=== PATIENT | male | born 1940 | race Caucasian/White ===

== ENCOUNTER 2017-06-03 09:18 | Inpatient (IN) ==
[2017-06-03] MEDS ORDERED: VISTARIL INJ IM PRN (09:32)
[2017-06-03] MEDS ORDERED: ATROPINE SULFATE PFS IVP PRN (09:32)
[2017-06-03] MEDS ORDERED: NITROSTAT SL PRN (09:32)
[2017-06-03] MEDS ORDERED: TYLENOL PO PRN (09:32)
[2017-06-03 10:05] LABS: ABG BASE EXCESS -3 (-2.0-2.0); ABG PCO2 31.1 mmHg (35-45); ABG PH 7.438 (7.35-7.45); ABG TCO2 22 (22.0-28.0)
[2017-06-03 10:23] LABS: BASOPHILS # (AUTO) 0.1 K/uL (0-0.2); BASOPHILS % (AUTO) 1.3 % (0.0-3.0); EOSINOPHILS # (AUTO) 0.3 K/ul (0.0-0.7); EOSINOPHILS % (AUTO) 5.6 % (0.0-7.0); HEMOGLOBIN 15.2 g/dl (14.0-18.0); IMMATURE GRANULOCYTE % (AUTO) 0.5 % (0.0-5.0); LYMPHOCYTES # (AUTO) 1.5 K/uL (0.60-3.4); LYMPHOCYTES % (AUTO) 26.6 (10.0-50.0); MEAN CORPUSCULAR HEMOGLOBIN 33.9 pg (27.0-31.0); MEAN CORPUSCULAR HGB CONC 37.6 (31.8-35.4); MONOCYTES # (AUTO) 0.5 K/uL (0.4-2.0); NEUTROPHILS # (AUTO) 3.2 K/ul (2.0-6.9); PLATELET COUNT 156 10^3/uL (140-440); RED BLOOD COUNT 4.49 10^6/ul (4.70-6.10); WHITE BLOOD COUNT 5.57 K/ul (4.2-10.2)
[2017-06-03 10:29] VITALS: BMI 23.5
[2017-06-03] MEDS: LOVENOX SUBCUT SCH (10:35)
[2017-06-03] MEDS: ZITHROMAX PO SCH (10:35)
[2017-06-03] MEDS: SOLU-CORTEF 250 MG IVP SCH ×4 (10:36→23:52)
[2017-06-03] MEDS: TORADOL IVP SCH ×2 (10:37→22:01)
[2017-06-03] MEDS: DEXTROSE 5%-1/2NS IV SOLUTION 1,000 ML IV SCH ×2 (10:42→19:04)
[2017-06-03] MEDS: ROCEPHIN 1 GM in SODIUM CHLORIDE 50 ML IV SCH (10:43)
[2017-06-03 10:59] LABS: HEMATOCRIT 40.4 % (42.0-52.0)
[2017-06-03 11:04] LABS: ALBUMIN/GLOBULIN RATIO 1.21; ANION GAP 12.4; BILIRUBIN,TOTAL 0.77 mg/dL (0.00-1.20); BUN/CREATININE RATIO 13.41; CREATININE 0.82 mg/dL (0.60-1.10); POTASSIUM 3.4 mmol/L (3.5-5.1); TOTAL PROTEIN 7.3 g/dL (5.8-8.1)
[2017-06-03 11:07] LABS: CREATINE KINASE 37 U/L; MYOGLOBIN 28 ng/ml
--- NOTE | 2017-06-03 11:54 | DI ---
EXAM: CHEST FRONTAL VIEW HISTORY: Chest pain. COMPARISON: 12/25/2013 FINDINGS: Heart size upper limit normal, stable. There is at least mild atherosclerotic disease. S ternotomy wires are noted. No acute infiltrates are seen. No vascular congestion. There is no conso lidation, visible pleural fluid or pneumothorax. Bones reveal no acute fracture. IMPRESSION: No acute cardiopulmonary process.
--- NOTE | 2017-06-03 11:57 | NM ---
EXAM: Ventilation perfusion lung scan HISTORY: Chest pain. COMPARISON: None of this type. Chest x-ray 06/03/2017. PROCEDURE: Ventilation: The patient was allowed to inhale from a reservoir of 30.1 mCi of 99 technetium DTPA ae rosol. Subsequently anterior, posterior, lateral and anterior and posterior oblique images were obta ined. Perfusion: The patient was injected with 5.0 mCi of 99 technetium MAA intravenously after which ante rior, posterior, lateral and anterior and posterior oblique images were obtained. FINDINGS: Ventilation images demonstrate a modestly nonuniform distribution of activity with clumping of aerosol in the airways. Incidental swallowed activity is seen within the stomach. The accompanyi ng perfusion images demonstrate a more uniform distribution of activity without evidence of significa nt mismatched segmental or subsegmental perfusion defects suggestive of pulmonary embolus. IMPRESSION: 1. Low probability of pulmonary embolus. 2. Findings compatible with underlying lung disease.
[2017-06-03 11:59] LABS: BILIRUBIN,URINE Negative (NEGATIVE); KETONES,URINE Negative (NEGATIVE); LEUKOCYTE ESTERASE ,URINE Negative (NEGATIVE); NITRITE,URINE Negative (NEGATIVE); PH,URINE 7.5 (5-9); PROTEIN,URINE Negative (NEGATIVE); URINE, BLOOD 3+ (NEGATIVE)
[2017-06-03 12:00] LABS: ADD URINE MICROSCOPIC YES
[2017-06-03] MEDS: FLOMAX PO SCH (16:20)
[2017-06-03] MEDS: PROTONIX PO SCH (16:20)
[2017-06-03] MEDS: COZAAR PO SCH (16:20)
[2017-06-03] MEDS: TENORMIN PO SCH (16:20)
[2017-06-03] MEDS: HYDROCHLOROTHIAZIDE PO SCH (16:20)
[2017-06-03] MEDS ORDERED: ASPIRIN EC PO SCH (17:00)
[2017-06-03] MEDS ORDERED: ATENOLOL PO SCH (17:00)
[2017-06-03] MEDS ORDERED: CHLORTHALIDONE PO SCH (17:00)
[2017-06-03] MEDS ORDERED: LANSOPRAZOLE PO SCH (17:00)
[2017-06-03] MEDS ORDERED: NON-FORMULARY MEDICATION (Losartan Potassium 50 MG) PO SCH (17:00)
[2017-06-03] MEDS ORDERED: [UNRECOGNIZED DRUG - OTHER] PO SCH (17:00)
[2017-06-03 18:25] LABS: CREATINE KINASE 95 U/L; MYOGLOBIN 92 ng/ml
[2017-06-04] MEDS: DEXTROSE 5%-1/2NS IV SOLUTION 1,000 ML IV SCH (02:45)
[2017-06-04 05:31] LABS: BASOPHILS % (AUTO) 0.1 % (0.0-3.0); EOSINOPHILS % (AUTO) 0.1 % (0.0-7.0); HEMATOCRIT 35.4 % (42.0-52.0); HEMOGLOBIN 13.3 g/dl (14.0-18.0); IMMATURE GRANULOCYTE % (AUTO) 0.6 % (0.0-5.0); LYMPHOCYTES # (AUTO) 1.1 K/uL (0.60-3.4); LYMPHOCYTES % (AUTO) 13.4 (10.0-50.0); MEAN CORPUSCULAR HEMOGLOBIN 33.7 pg (27.0-31.0); MEAN CORPUSCULAR HGB CONC 37.6 (31.8-35.4); MEAN CORPUSCULAR VOLUME 89.6 fl (80.0-94.0); MONOCYTES # (AUTO) 0.3 K/uL (0.4-2.0); MONOCYTES % (AUTO) 3.1 (0-10); NEUTROPHILS % (AUTO) 82.7; PLATELET COUNT 139 10^3/uL (140-440); RED BLOOD COUNT 3.95 10^6/ul (4.70-6.10)
[2017-06-04] MEDS: SOLU-CORTEF 250 MG IVP SCH ×3 (05:49→17:44)
[2017-06-04 06:00] LABS: ALBUMIN 3.3 g/dL (3.4-5.0); ALBUMIN/GLOBULIN RATIO 1.32; ANION GAP 12.3; BILIRUBIN,TOTAL 0.79 mg/dL (0.00-1.20); BUN/CREATININE RATIO 13.09; CALCIUM 9.1 mg/dL (8.2-10.2); CREATININE 0.84 mg/dL (0.60-1.10); POTASSIUM 3.3 mmol/L (3.5-5.1); TOTAL PROTEIN 5.8 g/dL (5.8-8.1)
[2017-06-04] MEDS: LOVENOX SUBCUT SCH (08:17)
[2017-06-04] MEDS: ASPIRIN EC PO SCH (08:17)
[2017-06-04] MEDS: ROCEPHIN 1 GM in SODIUM CHLORIDE 50 ML IV SCH (08:17)
[2017-06-04] MEDS: ZITHROMAX PO SCH (08:17)
[2017-06-04] MEDS: K-DUR PO SCH (08:18)
[2017-06-04] MEDS: SODIUM CHLORIDE 0.9%-KCL 40MEQ 1,000 ML IV SCH (08:19)
[2017-06-04 08:49] LABS: BILIRUBIN,URINE Negative (NEGATIVE); KETONES,URINE Negative (NEGATIVE); LEUKOCYTE ESTERASE ,URINE Negative (NEGATIVE); NITRITE,URINE Negative (NEGATIVE); PROTEIN,URINE Negative (NEGATIVE); URINE, BLOOD 1+ (NEGATIVE)
[2017-06-04 08:51] LABS: ADD URINE MICROSCOPIC YES
[2017-06-04] MEDS: TORADOL IVP SCH ×2 (09:47→20:53)
[2017-06-04 14:29] LABS: TROPONIN I 0.02 ng/ml (0.0000-0.4000)
[2017-06-04] MEDS: TENORMIN PO SCH (16:27)
[2017-06-04] MEDS: COZAAR PO SCH (16:27)
[2017-06-04] MEDS: HYDROCHLOROTHIAZIDE PO SCH (16:27)
[2017-06-04] MEDS: FLOMAX PO SCH (16:27)
[2017-06-04] MEDS: PROTONIX PO SCH (16:31)
[2017-06-05] MEDS: SOLU-CORTEF 250 MG IVP SCH ×4 (00:08→20:19)
[2017-06-05 05:04] LABS: BASOPHILS % (AUTO) 0.2 % (0.0-3.0); HEMATOCRIT 34.1 % (42.0-52.0); HEMOGLOBIN 12.8 g/dl (14.0-18.0); IMMATURE GRANULOCYTE % (AUTO) 1.5 % (0.0-5.0); LYMPHOCYTES % (AUTO) 10.6 (10.0-50.0); MEAN CORPUSCULAR HEMOGLOBIN 33.7 pg (27.0-31.0); MEAN CORPUSCULAR HGB CONC 37.5 (31.8-35.4); MEAN CORPUSCULAR VOLUME 89.7 fl (80.0-94.0); MONOCYTES # (AUTO) 0.4 K/uL (0.4-2.0); MONOCYTES % (AUTO) 4.3 (0-10); NEUTROPHILS % (AUTO) 83.4; PLATELET COUNT 134 10^3/uL (140-440); WHITE BLOOD COUNT 9.62 K/ul (4.2-10.2)
[2017-06-05 05:24] LABS: ALBUMIN 3.3 g/dL (3.4-5.0); ALBUMIN/GLOBULIN RATIO 1.32; ANION GAP 10.1; BILIRUBIN,TOTAL 0.52 mg/dL (0.00-1.20); BUN/CREATININE RATIO 11.84; CREATININE 0.76 mg/dL (0.60-1.10); POTASSIUM 3.1 mmol/L (3.5-5.1); TOTAL PROTEIN 5.8 g/dL (5.8-8.1)
[2017-06-05] MEDS: SODIUM CHLORIDE 0.9%-KCL 40MEQ 1,000 ML IV SCH (07:45)
[2017-06-05] MEDS: LOVENOX SUBCUT SCH (08:38)
[2017-06-05] MEDS: ROCEPHIN 1 GM in SODIUM CHLORIDE 50 ML IV SCH (08:38)
[2017-06-05] MEDS: ASPIRIN EC PO SCH (08:39)
[2017-06-05] MEDS: ZITHROMAX PO SCH (08:39)
[2017-06-05] MEDS: K-DUR PO SCH (08:39)
[2017-06-05] MEDS ORDERED: LASIX IVP STA (09:27)
[2017-06-05] MEDS ORDERED: LASIX ONE (09:32)
[2017-06-05] MEDS: TORADOL IVP SCH ×2 (09:36→20:18)
[2017-06-05] MEDS: COZAAR PO SCH (16:15)
[2017-06-05] MEDS: PROTONIX PO SCH (16:15)
[2017-06-05] MEDS: TENORMIN PO SCH (16:15)
[2017-06-05] MEDS: FLOMAX PO SCH (16:16)
[2017-06-05] MEDS: HYDROCHLOROTHIAZIDE PO SCH (16:16)
[2017-06-06 05:06] LABS: ALBUMIN 3.1 g/dL (3.4-5.0); ALBUMIN/GLOBULIN RATIO 1.24; ANION GAP 9.9; BILIRUBIN,TOTAL 0.54 mg/dL (0.00-1.20); BUN/CREATININE RATIO 14.28; CALCIUM 8.9 mg/dL (8.2-10.2); CREATININE 0.77 mg/dL (0.60-1.10); POTASSIUM 2.9 mmol/L (3.5-5.1); TOTAL PROTEIN 5.6 g/dL (5.8-8.1)
[2017-06-06 05:15] LABS: BASOPHILS % (AUTO) 0.1 % (0.0-3.0); EOSINOPHILS % (AUTO) 0.1 % (0.0-7.0); HEMATOCRIT 32.5 % (42.0-52.0); HEMOGLOBIN 12.2 g/dl (14.0-18.0); IMMATURE GRANULOCYTE % (AUTO) 0.7 % (0.0-5.0); LYMPHOCYTES % (AUTO) 14.7 (10.0-50.0); MEAN CORPUSCULAR HEMOGLOBIN 33.5 pg (27.0-31.0); MEAN CORPUSCULAR HGB CONC 37.5 (31.8-35.4); MEAN CORPUSCULAR VOLUME 89.3 fl (80.0-94.0); MONOCYTES # (AUTO) 0.4 K/uL (0.4-2.0); MONOCYTES % (AUTO) 5.9 (0-10); NEUTROPHILS # (AUTO) 5.5 K/ul (2.0-6.9); NEUTROPHILS % (AUTO) 78.5; PLATELET COUNT 138 10^3/uL (140-440); RED BLOOD COUNT 3.64 10^6/ul (4.70-6.10); WHITE BLOOD COUNT 6.95 K/ul (4.2-10.2)
[2017-06-06] MEDS: SOLU-CORTEF 250 MG IVP SCH ×3 (05:16→21:58)
[2017-06-06] MEDS: SODIUM CHLORIDE 0.9%-KCL 40MEQ 1,000 ML IV SCH (09:02)
[2017-06-06] MEDS: ROCEPHIN 1 GM in SODIUM CHLORIDE 50 ML IV SCH (09:03)
[2017-06-06] MEDS: K-DUR PO SCH ×3 (09:04→17:09)
[2017-06-06] MEDS: LOVENOX SUBCUT SCH (09:06)
[2017-06-06] MEDS: ASPIRIN EC PO SCH (09:06)
[2017-06-06] MEDS: TORADOL IVP SCH ×2 (09:07→21:58)
--- NOTE | 2017-06-06 13:06 | PCM.PROG ---
Attending Provider: ATTENDING PROVIDER: Dr. BALTA AESNCIO DATE OF SERVICE: 06/06/17 SUBJECTIVE: This 77 year old WHITE/ M was hospitalized 06/03/17. The patient is seen with Lea, Nurse Practitioner. The patient is alert, lying in bed. States he is not sleeping well; still has pleuritic pain. He is still coughing. He has a poor appetite. No diarrhea since yesterday. REVIEW OF SYSTEMS: CONSTITUTIONAL: Weakness. No night sweats. No fever or chills. HEENT: Eyes: No visual changes. No eye pain. No eye discharge. ENT: No runny nose. No epistaxis. No sinus pain. No odynophagia. No congestion. RESPIRATORY: Cough and congestion, pain on inspiration. No hemoptysis. No shortness of breath. CARDIOVASCULAR: No angina symptoms. No CHF symptoms. Pleuritic type chest pain. No palpitations. No orthopnea.. GASTROINTESTINAL: Poor appetite. No abdominal pain. No nausea or vomiting. No diarrhea or constipation. No hematemesis. No hematochezia. GENITOURINARY: No urgency. No frequency. No dysuria. No hematuria. No obstructive symptoms. No discharge. No pain. No significant abnormal bleeding. MUSCULOSKELETAL: No musculoskeletal pain; no joint swelling. NEUROLOGICAL: Awake, alert, oriented to time, place and person. No headache. No neck pain. No syncope. No seizures. No dizziness. PSYCHIATRIC: Not anxious. No depression. No suicidal thoughts. No homicidal thoughts. SKIN: No rash. No lesions. No wounds. ENDOCRINE: No unexplained weight loss. No weight gain. HEMATOLOGIC/LYMPHATIC: No anemia. No purpura. No petechiae. No prolonged or excessive bleeding. No palpable lymph nodes. PHYSICAL EXAMINATION: GENERAL: The patient is awake, alert and oriented, lying in bed in no distress. VITAL SIGNS: Temperature 97.3 F, Pulse 62, Respiratory Rate 16, BP 144/70, Pulse Ox 98% HEENT: Head normocephalic, atraumatic. Eyes: Extraocular muscles are intact. Pupils are equal, round and reactive to light and accommodation. Ears: No lesions. Nose appeared normal. Throat: No exudate or erythema. NECK: Supple. No JVD, no carotid bruit. No lymphadenopathy or thyromegaly. LUNGS: Diminished breath sounds with bilateral expiratory wheezes. Percussion note normal. Chest symmetrical. HEART: S1, S2, no S3. No murmurs. No cyanosis or clubbing. No ascites. Pulses: Dorsalis pedis and posterior tibial pulses +1 to +2 both sides. ABDOMEN: Soft. Non-tender. Bowel sounds active. No CVA tenderness. No mass felt. EXTREMITIES: No edema. Full range of motion of all extremities, equal. NEUROLOGIC: No focal deficit. Cranial nerves II through XII are grossly intact. No headache, no double vision or headache. SKIN: Not dry. Intact. Turgor-normal. LYMPHATIC: No palpable lymph nodes/no lymphedema. MUSCULOSKELETAL: Normal joints with no swelling. Muscle tone is normal. LAB REVIEW: 06/06/17 04:37 06/06/17 04:37 06/06/17 04:37: Sodium 133 L, Potassium 2.9 L, Chloride 100, Carbon Dioxide 26, Anion Gap 9.9, BUN 11, Creatinine 0.77, Estimated GFR (MDRD) 98.00, BUN/ Creatinine Ratio 14.28, Glucose 112, Calcium 8.9, Total Bilirubin 0.54, AST 15, ALT 12, Alkaline Phosphatase 52 L, Total Protein 5.6 L, Albumin 3.1 L, Globulin 2.5, Albumin/Globulin Ratio 1.24 06/06/17 04:37: WBC 6.95, RBC 3.64 L, Hgb 12.2 L, Hct 32.5 L, MCV 89.3, MCH 33.5 H, MCHC 37.5 H, RDW Coeff of Yuki 12.6, Plt Count 138 L, Immature Gran % ( Auto) 0.7, Neut % (Auto) 78.5, Lymph % (Auto) 14.7, [place] % (Auto) 5.9, Eos % ( Auto) 0.1, Baso % (Auto) 0.1, Immature Gran # (Auto) 0.1, Neut # 5.5, Lymph # 1.0, [place] # 0.4, Eos # 0.0, Baso # 0.0 ASSESSMENT: 1. Pleuritic chest pain with acute bronchitis 2. COPD 3. Hypokalemia PLAN: 1. Ativan 1 mg at bedtime q.hs 2. Potassium 40 mg p.o. t.i.d. Plan and coordination of the patient's care discussed in the presence of Hydroelectric Plant Electrician and nurse. CONDITION: Stable SCRIBED BY: CADEN GRACE Fabric Pattern Grader scribed while in presence of service performed by Dr. BALTA ASENCIO/LEA ROMERO APRN on 06/06/17 ([id number])
[2017-06-06] MEDS: COZAAR PO SCH (17:10)
[2017-06-06] MEDS: PROTONIX PO SCH (17:10)
[2017-06-06] MEDS: TENORMIN PO SCH (17:10)
[2017-06-06] MEDS: HYDROCHLOROTHIAZIDE PO SCH (17:10)
[2017-06-06] MEDS: FLOMAX PO SCH (17:11)
[2017-06-06] MEDS ORDERED: ATIVAN PO SCH (21:00)
[2017-06-07 05:01] LABS: BASOPHILS % (AUTO) 0.2 % (0.0-3.0); HEMATOCRIT 33.3 % (42.0-52.0); HEMOGLOBIN 12.5 g/dl (14.0-18.0); IMMATURE GRANULOCYTE % (AUTO) 0.9 % (0.0-5.0); LYMPHOCYTES # (AUTO) 0.9 K/uL (0.60-3.4); LYMPHOCYTES % (AUTO) 14.9 (10.0-50.0); MEAN CORPUSCULAR HEMOGLOBIN 33.7 pg (27.0-31.0); MEAN CORPUSCULAR HGB CONC 37.5 (31.8-35.4); MEAN CORPUSCULAR VOLUME 89.8 fl (80.0-94.0); MONOCYTES # (AUTO) 0.4 K/uL (0.4-2.0); MONOCYTES % (AUTO) 6.7 (0-10); NEUTROPHILS # (AUTO) 4.5 K/ul (2.0-6.9); NEUTROPHILS % (AUTO) 77.3; PLATELET COUNT 131 10^3/uL (140-440); RED BLOOD COUNT 3.71 10^6/ul (4.70-6.10); WHITE BLOOD COUNT 5.79 K/ul (4.2-10.2)
[2017-06-07 05:20] VITALS: BP 137/66; TEMP 98
[2017-06-07 05:26] LABS: ALBUMIN 3.3 g/dL (3.4-5.0); ALBUMIN/GLOBULIN RATIO 1.27; BILIRUBIN,TOTAL 0.8 mg/dL (0.00-1.20); BUN/CREATININE RATIO 16.43; CALCIUM 8.7 mg/dL (8.2-10.2); CREATININE 0.73 mg/dL (0.60-1.10); TOTAL PROTEIN 5.9 g/dL (5.8-8.1)
[2017-06-07] MEDS: SOLU-CORTEF 250 MG IVP SCH (05:47)
--- NOTE | 2017-06-07 09:07 | PCM.PROG ---
Attending Provider: ATTENDING PROVIDER: Dr. BALTA ASENCIO DATE OF SERVICE: 06/07/17 SUBJECTIVE: This 77 year old WHITE/ M was hospitalized 06/03/17. The patient is seen with Lea, Nurse Practitioner. The patient is lying in bed, states he feels better today, slept well. He has been eating well. He states he is ready to go home. No headache. His cough is finally productive. No shortness of breath. REVIEW OF SYSTEMS: CONSTITUTIONAL: No night sweats. No fatigue, malaise, lethargy. No fever or chills. HEENT: Eyes: No visual changes. No eye pain. No eye discharge. ENT: No runny nose. No epistaxis. No sinus pain. No odynophagia. No congestion. RESPIRATORY: Cough and congestion. No hemoptysis. No shortness of breath. CARDIOVASCULAR: No angina symptoms. No CHF symptoms. No atypical chest pain for CAD. No palpitations. No orthopnea.. GASTROINTESTINAL: Positive for diarrhea. No abdominal pain. No nausea or vomiting. No hematemesis. No hematochezia. GENITOURINARY: No urgency. No frequency. No dysuria. No hematuria. No obstructive symptoms. No discharge. No pain. No significant abnormal bleeding. MUSCULOSKELETAL: No musculoskeletal pain; no joint swelling. NEUROLOGICAL: Awake, alert, oriented to time, place and person. No headache. No neck pain. No syncope. No seizures. No dizziness. PSYCHIATRIC: Not anxious. No depression. No suicidal thoughts. No homicidal thoughts. SKIN: No rash. No lesions. No wounds. ENDOCRINE: No unexplained weight loss. No weight gain. HEMATOLOGIC/LYMPHATIC: No anemia. No purpura. No petechiae. No prolonged or excessive bleeding. No palpable lymph nodes. PHYSICAL EXAMINATION: GENERAL: The patient is awake, alert and oriented, lying in bed in no distress. VITAL SIGNS: Temperature 98.0 F, Pulse 55, Respiratory Rate 18, BP 137/66, Pulse Ox 97% HEENT: Head normocephalic, atraumatic. Eyes: Extraocular muscles are intact. Pupils are equal, round and reactive to light and accommodation. Ears: No lesions. Nose appeared normal. Throat: No exudate or erythema. NECK: Supple. No JVD, no carotid bruit. No lymphadenopathy or thyromegaly. LUNGS: Diminished breath sounds with rhonchi bilaterally. Clear to auscultation. Percussion note normal. Chest symmetrical. HEART: S1, S2, no S3. No murmurs. No cyanosis or clubbing. No ascites. Pulses: Dorsalis pedis and posterior tibial pulses +1 to +2 both sides. ABDOMEN: Soft. Non-tender. Bowel sounds active. No CVA tenderness. No mass felt. EXTREMITIES: No edema. Full range of motion of all extremities, equal. NEUROLOGIC: No focal deficit. Cranial nerves II through XII are grossly intact. No headache, no double vision or headache. SKIN: Not dry. Intact. Turgor-normal. LYMPHATIC: No palpable lymph nodes/no lymphedema. MUSCULOSKELETAL: Normal joints with no swelling. Muscle tone is normal. LAB REVIEW: 06/07/17 04:58 06/07/17 04:58 06/07/17 04:58: Sodium 134 L, Potassium 3.0 L, Chloride 101, Carbon Dioxide 24, Anion Gap 12.0, BUN 12, Creatinine 0.73, Estimated GFR (MDRD) 104.00, BUN/ Creatinine Ratio 16.43, Glucose 113, Calcium 8.7, Total Bilirubin 0.80, AST 20, ALT 19, Alkaline Phosphatase 53 L, Total Protein 5.9, Albumin 3.3 L, Globulin 2.6, Albumin/Globulin Ratio 1.27 06/07/17 04:58: WBC 5.79, RBC 3.71 L, Hgb 12.5 L, Hct 33.3 L, MCV 89.8, MCH 33.7 H, MCHC 37.5 H, RDW Coeff of Yuki 12.6, Plt Count 131 L, Immature Gran % ( Auto) 0.9, Neut % (Auto) 77.3, Lymph % (Auto) 14.9, [place] % (Auto) 6.7, Eos % ( Auto) 0.0, Baso % (Auto) 0.2, Immature Gran # (Auto) 0.1, Neut # 4.5, Lymph # 0.9, [place] # 0.4, Eos # 0.0, Baso # 0.0 ASSESSMENT: 1. Pleuritic chest pain with acute bronchitis 2. COPD 3. Hypokalemia PLAN: 1. Discharge home 2. Potassium 40 mEq b.i.d. times five days 3. Duonebs t.i.d. 4. Keflex 500 t.i.d. times 5 days 5. Prednisone 20 mg b.i.d. for 2 days and then 10 mg b.i.d. for 3 days 6. Will see the patient back in the office or Tuesday. Repeat CBC and CMP before coming to office Plan and coordination of the patient's care discussed in the presence of Box Blank Machine Feeder and nurse. CONDITION: Stable EDUCATION: Discussed with the patient the need to obtain a nebulizer machine to be used in the home setting. The patient voices understanding and is agreeable. SCRIBED BY: CADEN GRACE Oil Field Equipment Mechanic scribed while in presence of service performed by Dr. BALTA ASENCIO/LEA ROMERO APRN on 06/07/17 ([id number])
[2017-06-07] MEDS: LOVENOX SUBCUT SCH (09:55)
[2017-06-07] MEDS: ASPIRIN EC PO SCH (09:55)
[2017-06-07] MEDS: K-DUR PO SCH (09:55)
[2017-06-07] MEDS: ROCEPHIN 1 GM in SODIUM CHLORIDE 50 ML IV SCH (09:56)
[2017-06-07] MEDS: TORADOL IVP SCH (09:56)
[2017-06-07] MEDS: SODIUM CHLORIDE 0.9%-KCL 40MEQ 1,000 ML IV SCH (10:01)
--- NOTE | 2017-06-07 10:34 | HP ---
DATE OF SERVICE: 06/03/17 REASON FOR HOSPITALIZATION/HISTORY OF PRESENT ILLNESS: Broke out in cold sweat yesterday, pain right side of chest to back-quit after one hour or so. Since has had headache, nauseated/exhausted, right shoulder/ right shoulder ache =cough makes it worse. Coughing more this week. REVIEW OF SYSTEMS: CONSTITUTIONAL: No fever, Fatigue. HEENT: No sinus drainage, no sore throat. RESPIRATORY: Cough, no congestion. CARDIOVASCULAR: Atypical chest pain for coronary artery disease. No angina, CHF symptoms, palpitations. Shortness of breath, mild. GASTROINTESTINAL: No melena or abdominal pain. GERD symptoms plus nausea. GENITOURINARY: No hematuria, no prostatism, no polyuria. MATTRESS SPECIALIST: No blackout, no dizziness, Headache, no double vision. MUSCULOSKELETAL: Osteoarthritis pain, no joint swelling. ENDOCRINE: No weight loss, no weight gain. SKIN: Not dry, no rash. PSYCHIATRIC: Not anxious, no depression, no suicidal thoughts, no homicidal thoughts. SOCIAL HISTORY: Marital Status: . Alcohol Usage: No. Tobacco Usage: Yes. Family History : Father is age 80's cardiac, mother age 70's gallbladder, one sister . SURGICAL/MEDICAL HISTORY: Back surgery CABG's x4 Hernia repair Hypertension CABG Dyslipidemia DJD status post surgery COPD/Smoking GERD Carotid stenosis MEDICATIONS: Flomax 0.4mg capsule extended release take one capsule PO 1/2 hour following same meal each day Cozaar 50mg PO daily Atenolol-Chlorthalidone 50-25mg PO daily Aspirin 81mg PO daily Lansoprazole 30mg delayed release PO before meal. ALLERGIES: IV dye Iodine PHYSICAL EXAMINATION: V/S: Pulse 70, blood pressure 130/70, O2 sat 98%. GENERAL APPEARANCE: Oriented times three. Pallor. HEENT: Normal. Weakness NECK: No JVP, no bruits. RESPIRATORY: Decreased breath sounds with bilateral wheeze. CARDIOVASCULAR: S1, S2, no S3, no murmurs. No cyanosis, clubbing. No ascites. GI/ABDOMEN: Tenderness. Bowel sounds are active. EXTREMITIES: Edema, pulses +1, equal. MATTRESS SPECIALIST: Deep tendon reflexes, sensory, motor and gait all normal. RECTAL: refused/PROSTATE:11-16 (2.1) . ASSESSMENT: 1. Pleuritic chest pain 2. Acute bronchitis/COPD 3. Rule out UT/ischemia 4. CABG 05/31 5. Smoking 6. Hypertension, controlled with medicine 7. Dyslipidemia 8. DJD spine 9. 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 Admit regular 2. Routine telemetry orders 3. BNP/ D-Dimer 4. T4 TSH 5. ABG/Toradol 30mg IV now and 12 hourly 6. 125mg IV Solu-Cortef now and Q 6 hourly 7. Zithromax 500mg PO daily 8. Rocephin 1gream IV piggyback 24 hourly 9. Pulmonary 10.1000cc D5 1/2 normal saline 8 hourly 11.Echo 12.Continue all home medications 13.Lovenox 40mg SUBCUT daily 14.Daily CBC and CMP TIME SPENT: More than 70 minutes. MTDD
--- NOTE | 2017-06-07 13:33 | CM.DICTOOL ---
ADMISSION: 06/03/17 09:18 DISCHARGE: 06/07/17 DATE OF SERVICE: 06/07/17 FINAL DIAGNOSIS PLEURITIC CHEST PAIN BRONCHITIS, ACUTE COPD HYPOKALEMIA CAD S/P CABG'S X4, 05/31 CAROTID STENOSIS HYPERTENSION DYSLIPIDEMIA GERD BPH CEREBELLAR ATROPHY DJD-SPINE S/P SURGERY HERNIA REPAIR LAST VITALS Temp Pulse Resp BP Pulse Ox 98.0 F 55 L 18 137/66 97 06/07/17 05:19 06/07/17 05:19 06/07/17 05:19 06/07/17 05:19 06/07/17 05:19 ACTIVE HOME MEDICATIONS Aspirin (Aspirin Ec) 81 mg PO DAILYWM [facility] Last Admin: 06/06/17 09:06 Dose: 81 mg Atenolol-Chlorthalidone (Tenormin) 50-25 mg PO 1700 [facility] Last Admin: 06/06/17 17:10 Dose: 50-25 mg Lansoprazole 1 cap PO DAILY Losartan Potassium (Cozaar) 50 mg PO 1700 [facility] Last Admin: 06/06/17 17:10 Dose: 50 mg Potassium Chloride (K-Dur) 40 meq PO BIDWM X 5 DAYS [facility] (NEW PRESCRIPTION) Last Admin: 06/06/17 17:09 Dose: 40 meq Tamsulosin HCl (Flomax) 0.4 mg PO 1700 [facility] Last Admin: 06/06/17 17:11 Dose: 0.4 mg ALLERGIES Iodinated Contrast- Oral and IV Dye [Iodinated Contrast Media - IV Dye] Adverse Reaction (Verified 01/31/14 23:22) iodine Adverse Reaction (Verified 01/31/14 23:18) NEW PRESCRIPTIONS: ALBUTEROL/IPRATROPIUM (DUONEBS), ADMINISTER THREE TIMES DAILY PREDNISONE 10 MG, TAKE TWO TABLETS BY MOUTH TWICE DAILY FOR 2 DAYS, THEN ONE TABLET BY MOUTH TWICE DAILY FOR 3 DAYS. TAKE THIS MEDICATION WITH FOOD KEFLEX 500 MG, TAKE ONE CAPSULE BY MOUTH EVERY 12 HOURS FOR 5 DAYS POTASSIUM SUPPLEMENT 40 MEQ, TAKE ONE TABLET BY MOUTH TWICE DAILY FOR 5 DAYS SMOKING: HEAVY SMOKER THE PATIENT HAS BEEN PROVIDED TEACHING/INFORMATION REGARDING SMOKING CESSATION AND THE BENEFITS TO HIS CARDIOPULMONARY HEALTH WITH COMPLETE CESSATION. HE HAS ALSO BEEN REMINDED OF THE RISKS THAT CONTINUED SMOKING BRINGS. HE HAS NOT VERBALIZED HIS PLAN TO STOP OR REDUCE THE AMOUNT OF CIGARETTES SMOKED. WE WILL CONTINUE TO PROVIDE ENCOURAGEMENT FOR COMPLETE CESSATION. DISEASE SPECIFIC EDUCATION: ACUTE BRONCHITIS/COPD PLEURITIC TYPE PAIN HOME MEDICATIONS NEW PRESCRIPTIONS FOLLOW UP LAB REVIEW: 06/07/17 04:58 06/07/17 04:58 06/07/17 04:58: Sodium 134 L, Potassium 3.0 L, Chloride 101, Carbon Dioxide 24, Anion Gap 12.0, BUN 12, Creatinine 0.73, Estimated GFR (MDRD) 104.00, BUN/ Creatinine Ratio 16.43, Glucose 113, Calcium 8.7, Total Bilirubin 0.80, AST 20, ALT 19, Alkaline Phosphatase 53 L, Total Protein 5.9, Albumin 3.3 L, Globulin 2.6, Albumin/Globulin Ratio 1.27 06/07/17 04:58: WBC 5.79, RBC 3.71 L, Hgb 12.5 L, Hct 33.3 L, MCV 89.8, MCH 33.7 H, MCHC 37.5 H, RDW Coeff of Yuki 12.6, Plt Count 131 L, Immature Gran % ( Auto) 0.9, Neut % (Auto) 77.3, Lymph % (Auto) 14.9, [place] % (Auto) 6.7, Eos % ( Auto) 0.0, Baso % (Auto) 0.2, Immature Gran # (Auto) 0.1, Neut # 4.5, Lymph # 0.9, [place] # 0.4, Eos # 0.0, Baso # 0.0 PLAN: DISCHARGE HOME TODAY RETURN TO DR. ASENCIO'S OFFICE FOR FOLLOW UP ON 06/10/17 AT 11:45 A.M. RETURN TO [facility] FOR LABS ON 06/09/17: CBC WITH DIFF AND CMP RESUME YOUR HOME MEDICATIONS PER LIST PROVIDED BY THE NURSING STAFF NEW PRESCRIPTIONS: ALBUTEROL/IPRATROPIUM (DUONEBS), ADMINISTER THREE TIMES DAILY PREDNISONE 10 MG, TAKE TWO TABLETS BY MOUTH TWICE DAILY FOR 2 DAYS, THEN ONE TABLET BY MOUTH TWICE DAILY FOR 3 DAYS. TAKE THIS MEDICATION WITH FOOD KEFLEX 500 MG, TAKE ONE CAPSULE BY MOUTH EVERY 12 HOURS FOR 5 DAYS POTASSIUM SUPPLEMENT 40 MEQ, TAKE ONE TABLET BY MOUTH TWICE DAILY FOR 5 DAYS ACTIVITY: GET PLENTY OF REST AT HOME. GRADUALLY INCREASE YOUR ACTIVITY LEVEL ACCORDING TO YOUR TOLERATION DIET: HEALTHY HEART SUMMARY: THE PATIENT IS ALERT AND ORIENTED X3. HE CURRENTLY RESIDES AT HOME. HE HAS BEEN INDEPENDENT WITH ADL'S AND DEPENDS ON NO DME, HOME HEALTH OR HOMEMAKING SERVICES. WE HAVE ARRANGED FOR HIM TO RECEIVE A NEBULIZER FROM [facility] FOR BREATHING TREATMENTS AT HOME. HE DESIRES TO RETURN TO HIS HOME AT DISCHARGE. HIS SKIN TURGOR IS INTACT AND WITHOUT DECUBITUS ULCERS. HIS HYDRATION STATUS IS IMPROVED FROM ADMISSION. HE IS AWARE AND AGREEABLE FOR TODAY'S DISCHARGE PLANS. CURRENT CODE STATUS: CPR ONLY, DO NOT INTUBATE VIVIAN ROMERO, LUMBER INSPECTOR BALTA ASENCIO M.D.
--- NOTE | 2017-06-08 10:29 | PN ---
DATE OF SERVICE: 06/04/17 SUBJECTIVE: 47 year old white male was hospitalized with hypotension, dehydration, pleuritic type of pain, flu type of symptoms. The patient had chest pain right sided with pleurcy. The patient was extremely fatigued and tired and dehydration. The patient said that he had flu type of symptoms nearly a week ago that he recovered partially from it and started being active and that is when he started having problems. At present time they brought him to the hospital. REVIEW OF SYSTEMS: CONSTITUTIONAL: No night sweats. Fatigue, malaise, lethargy. No fever or chills. Weakness. HEENT: Eyes: No visual changes. No eye pain. No eye discharge. ENT: No runny nose. No epistaxis. No sinus pain. No sore throat. No odynophagia. No congestion. RESPIRATORY: Mild cough, no congestion. No hemoptysis. No shortness of breath. CARDIOVASCULAR: No angina symptoms. No CHF symptoms. No atypical chest pain for CAD. No palpitations. No orthopnea. No PND. GASTROINTESTINAL: No abdominal pain. No nausea or vomiting. No diarrhea or constipation. No hematemesis. No hematochezia. GENITOURINARY: No urgency. No frequency. No dysuria. No hematuria. No obstructive symptoms. No discharge. No pain. No significant abnormal bleeding. MUSCULOSKELETAL: No musculoskeletal pain; no joint swelling. NEUROLOGICAL: No headache. No neck pain. No syncope. No seizures. No dizziness. PSYCHIATRIC: Not anxious. No depression. No suicidal thoughts. No homicidal thoughts. SKIN: No rash. No lesions. No wounds. ENDOCRINE: No unexplained weight loss. No weight gain. HEMATOLOGIC/LYMPHATIC: No anemia. No purpura. No petechiae. No prolonged or excessive bleeding. No palpable lymph nodes. PHYSICAL EXAMINATION: VITAL SIGNS: Temperature 96.7, pulse 60, respiratory rate 20, blood pressure 115/66 and pulse ox 98%. HEENT: Head normocephalic, atraumatic. Eyes: Extraocular muscles are intact. Pupils are equal, round and reactive to light and accommodation. Ears: No lesions. Nose appeared normal. Throat: No exudate or erythema. NECK: Supple. No JVD, no carotid bruit. No lymphadenopathy or thyromegaly. LUNGS: Decreased breath sounds but clear to auscultation. Percussion note normal. Chest symmetrical. HEART: S1, S2, no S3. No murmurs. No cyanosis or clubbing. No ascites. Pulses: Dorsalis pedis and posterior tibial pulses +1 to +2 both sides. ABDOMEN: Soft. Nontender. Bowel sounds active. No CVA tenderness. No mass felt. EXTREMITIES: No edema. Full range of motion of all extremities, equal. NEUROLOGIC: No focal deficit. Cranial nerves II through XII are grossly intact. No headache, no double vision or headache. SKIN: Not dry. Intact. Turgor - normal. LYMPHATIC: No palpable lymph nodes/no lymphedema. MUSCULOSKELETAL: Normal joints with no swelling. Muscle tone is normal. LABS: Hgb 13.3, hct 35, WBC 8,500 normal differential, creatinine 0.8, BUN 11, potassium 3.3, sodium 126. ASSESSMENT: 1. Dehydration with hyponatremia and hypokalemia 2. Acute bronchitis with pleuritic pain 3. Flu type of symptoms 4. Chest pain, pleuritic; HI and ischemia has been ruled out so far. PLAN: 1. Change the IV fluids the 1,000cc normal saline with 40meq KCL to be infused over 24 hours 2. Continue the rest of the medications 3. The patient is advised to up and about. TIME SPENT: More than 30 minutes. Plan and coordination of the patient's care discussed in the presence of nurse. LINH
--- NOTE | 2017-06-08 11:27 | ECHO2D ---
Date of Exam: 06/06/2017 Ordering Physician:BALTA ASENCIO Room #: 114 Reason for Echo: CHEST PAIN, CORONARY ARTERY BYPASS GRAFT M-Mode Normal Adult Results LV Dimensions Normal Adult Results AoV Opening excursions >1.6 >1.6 LVEDD-base- 3.5-5.8 4.6 Ao root dimensions 2.0-3.7 3.0 LVESD-base- 3.1-4.6 L. Atrium dimensions 1.9-3.8 4.5 Post. Wall thickness 0.8-1.1 1.4 IV septum (thickness) 0.7-1.2 1.4 Post. Wall excursion 0.72-1.3 NORMAL Septal motion NORMAL Systolic motion R. Ventricular cavity 1.5-2.0 NORMAL LVEF 60% 73% Paradoxical septal wall motion NORMAL 2-D : ENLARGED LEFT ATRIAL CAVITY. NORMAL LEFT VENTRICULAR CONTRACTILITY, NORMAL VALVES, NO EFFUSION, NO THROMBUS M-MODE: MV: NORMAL AV: NORMAL TV: NORMAL PV: NORMAL CHAMBER SIZE: ENLARGED LEFT ATRIAL CAVITY WALL MOTION: NORMAL PERICARDIUM: NORMAL INTERPRETATION: 1. LEFT VENTRICULAR HYPERTROPHY WITH ENLARGED LEFT ATRIAL CAVITY 2. NORMAL LEFT VENTRICULAR CONTRACTILITY 3. NORMAL VALVES MTDD
--- NOTE | 2017-06-09 14:41 | PN ---
DATE OF SERVICE: 06/06/17 SUBJECTIVE: 77 year old white male hospitalized with pleuritic pain right sided with acute gastroenteritis type of symptoms and bronchitis. The patient is feeling a lot better. Still has diarrhea. REVIEW OF SYSTEMS: CONSTITUTIONAL: No night sweats. No fatigue, malaise, lethargy. No fever or chills. HEENT: Eyes: No visual changes. No eye pain. No eye discharge. ENT: No runny nose. No epistaxis. No sinus pain. No sore throat. No odynophagia. No congestion. RESPIRATORY: No cough, no congestion. No hemoptysis. No shortness of breath. CARDIOVASCULAR: No angina symptoms. No CHF symptoms. No atypical chest pain for CAD. No palpitations. No orthopnea. GASTROINTESTINAL: No abdominal pain. No nausea or vomiting. Diarrhea. No hematemesis. No hematochezia. GENITOURINARY: No urgency. No frequency. No dysuria. No hematuria. No obstructive symptoms. No discharge. No pain. No significant abnormal bleeding. MUSCULOSKELETAL: No musculoskeletal pain; no joint swelling. NEUROLOGICAL: No headache. No neck pain. No syncope. No seizures. No dizziness. PSYCHIATRIC: Not anxious. No depression. No suicidal thoughts. No homicidal thoughts. SKIN: No rash. No lesions. No wounds. ENDOCRINE: No unexplained weight loss. No weight gain. HEMATOLOGIC/LYMPHATIC: No anemia. No purpura. No petechiae. No prolonged or excessive bleeding. No palpable lymph nodes. PHYSICAL EXAMINATION: VITAL SIGNS: Temperature 97, pulse 62, respiratory rate 16, blood pressure 144/ 70 and pulse 98%. HEENT: Head normocephalic, atraumatic. Eyes: Extraocular muscles are intact. Pupils are equal, round and reactive to light and accommodation. Ears: No lesions. Nose appeared normal. Throat: No exudate or erythema. NECK: Supple. No JVD, no carotid bruit. No lymphadenopathy or thyromegaly. LUNGS: Decreased breath sounds but clear to auscultation. Percussion note normal. Chest symmetrical. HEART: S1, S2, no S3. No murmurs. No cyanosis or clubbing. No ascites. Pulses: Dorsalis pedis and posterior tibial pulses +1 to +2 both sides. ABDOMEN: Soft. Nontender. Bowel sounds active. No CVA tenderness. No mass felt. EXTREMITIES: No edema. Full range of motion of all extremities, equal. NEUROLOGIC: No focal deficit. Cranial nerves II through XII are grossly intact. No headache, no double vision or headache. SKIN: Not dry. Intact. Turgor - normal. LYMPHATIC: No palpable lymph nodes/no lymphedema. MUSCULOSKELETAL: Normal joints with no swelling. Muscle tone is normal. ASSESSMENT: 1. Acute gastroenteritis type of symptoms, under control except for still diarrhea 2. Pleuritic pain, right sided under control 3. Bronchitis, better 4. Dehydration seems to have resolved with good skin turgor The patient was seen and examined with Nurse Practitioner. PLAN: 1. Continue antibiotic, we may hold it because of the diarrhea 2. Stool for C-Diff 3. Echocardiogram practically normal LV contractility, normal valves. TIME SPENT: More than 30 minutes. Plan and coordination of the patient's care discussed in the presence of nurse. LINH
--- NOTE | 2017-06-09 14:50 | DS ---
DATE OF SERVICE: 06/07/17 FINAL DIAGNOSIS: 1. PLEURITIC CHEST PAIN 2. ACUTE BRONCHITIS 3. ACUTE COPD 4. HYPOKALEMIA 5. WEAKNESS 6. CAD STATUS POST CABG TIMES FOUR 05/31 7. CAROTID STENOSIS 8. HYPERTENSION 9. DYSLIPIDEMIA 10. GERD 11. 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 HERNIA REPAIR 15. SMOKER - LONG HISTORY DISCHARGE INSTRUCTIONS: Followup appointment in days with . MEDICATIONS AT DISCHARGE: 1. Aspirin 81 mg p.o. daily with meal 2. Atenolol-Chlorthalidone (Tenormin) 50-25 mg p.o. 1700 ALIX 3. Lansoprazole one cap p.o. daily 4. Losartan (Cozaar) 50 mg p.o. 1700 ALIX 5. Potassium Chloride (K-Dur) 40 mEq p.o. b.i.d. with meal times five days ALIX (new prescription) 6. Tamsulosin (Flomax) 0.4 mg p.o. 1700 ALIX NEW PRESCRIPTIONS: 1. Albuterol/Ipratropium (Duonebs) Administer three times daily 2. Prednisone 10 mg take two tablets by mouth twice daily for 2 days then one tablet by mouth twice daily for 3 days. Take this medication with food. 3. Keflex 500 mg take one capsule by mouth every 12 hours for 5 days 4. Potassium supplement 40 mEq take one tablet by mouth twice daily for 5 days DIET INSTRUCTIONS: Healthy Heart ACTIVITY: Get plenty of rest at home. Gradually increase your activity level according to your toleration. SMOKING: Heavy smoker DISEASE SPECIFIC EDUCATION: Acute bronchitis/COPD Pleuritic type mirtha n Home medications New prescriptions Follow up Smoking cessation provided HOSPITAL COURSE: This is a 77-year-old male who was a direct admit from the office. He presented to our office complaining of weakness, fatigue, low grade fever, coughing for several days, stated that he just did not feel well. He was subsequently admitted, placed on Rocephin IV every 24 hours along with Zithromax 500 mg daily for 3 days. We started him on IV Solu-Cortef 125 mg q.8hr. His blood pressure was low in the office so we held his blood pressure medication for the first 24 hours. We started him on IV fluids. He had atypical chest pain consistent with pleurisy type pain which was treated with pain medication and IV steroids. His chest x-ray revealed chronic changes consistent with COPD as well as acute bronchitis. No pneumonia. His labs remained stable during his hospital stay although he did develop some diarrhea on the second day. Today, he has only had one loose stool and yesterday he only had three loose stools so it seems to be improving. He was started on Protonix due to gastritis. This is thought to be due to GI upset from antibiotics and/or viral. Due to this he did develop hypokalemia for which we started him on potassium 40 mEq t.i.d. He will be sent home with potassium 40 mEq b.i.d. for the next week. His potassium today on the day of discharge is 3.0. Sodium is steady at 134. Hemoglobin stable at 12.5, hematocrit 33.3, platelets 131. BUN 12 and creatinine 0.73. His vital signs have remained stable. He has been eating 75 to 100% of his meals for the past few days. His telemetry reading has showed normal sinus rhythm with a bundle branch block which is normal for him. We were able to resume his home medications including his home blood pressure medication after the first 24 hours with IV fluids. For the past two days he has been up and about walking around, He states he is ready to go home. Dr. Yap performed an echo which showed no change. Today on day of discharge his temperature is 98, heart rate 55, respirations 18, BP 137/66, pulse ox 97% on room air. We will discharge him home on Keflex 500 mg t.i.d. for the next five days along with Prednisone 20 mg b.i.d. times two days and 10 mg b.i.d. for 3 days. An order was given for him to get a nebulizer machine and do Duonebs three times a day as needed until cough resolves. Will see him in the office later this week on or Tuesday. TIME SPENT: More than 60 minutes. LINH
--- NOTE | 2017-06-09 15:22 | PN ---
DATE OF SERVICE: 06/05/17 SUBJECTIVE: 77 year old white male hospitalized with pleuritic type of pain, acute bronchitis, severe dehydration, weakness, flu type of symptoms. The patient's condition has slowly improved. He is still feeling weak, pleuritis type of pain with right sided chest pain and shoulder pain has practically subsided. He is still coughing. Appetite is improved. He still has abnormal sodium and potassium but improving. REVIEW OF SYSTEMS: CONSTITUTIONAL: No night sweats. No fatigue, malaise, lethargy. No fever or chills. Mild weakness. HEENT: Eyes: No visual changes. No eye pain. No eye discharge. ENT: No runny nose. No epistaxis. No sinus pain. No sore throat. No odynophagia. No congestion. RESPIRATORY: Mild cough, no congestion. No hemoptysis. No shortness of breath. CARDIOVASCULAR: No angina symptoms. No CHF symptoms. No atypical chest pain for CAD. No palpitations. No orthopnea. No pleuritic type of pain. No PND. GASTROINTESTINAL: No abdominal pain. No nausea or vomiting. No diarrhea or constipation. No hematemesis. No hematochezia. GENITOURINARY: No urgency. No frequency. No dysuria. No hematuria. No obstructive symptoms. No discharge. No pain. No significant abnormal bleeding. MUSCULOSKELETAL: No musculoskeletal pain; no joint swelling. NEUROLOGICAL: No headache. No neck pain. No syncope. No seizures. No dizziness. PSYCHIATRIC: Not anxious. No depression. No suicidal thoughts. No homicidal thoughts. SKIN: No rash. No lesions. No wounds. ENDOCRINE: No unexplained weight loss. No weight gain. HEMATOLOGIC/LYMPHATIC: No anemia. No purpura. No petechiae. No prolonged or excessive bleeding. No palpable lymph nodes. PHYSICAL EXAMINATION: GENERAL: The patient is oriented to time, place and person. VITAL SIGNS: Temperature 98, pulse 59, respiratory rate 19, blood pressure 127/ 60 and pulse ox 98%. HEENT: Head normocephalic, atraumatic. Eyes: Extraocular muscles are intact. Pupils are equal, round and reactive to light and accommodation. Ears: No lesions. Nose appeared normal. Throat: No exudate or erythema. NECK: Supple. No JVD, no carotid bruit. No lymphadenopathy or thyromegaly. LUNGS: Decreased breath sounds but clear to auscultation. Percussion note normal. Chest symmetrical. HEART: S1, S2, no S3. No murmurs. No cyanosis or clubbing. No ascites. Pulses: Dorsalis pedis and posterior tibial pulses +1 to +2 both sides. ABDOMEN: Soft. Nontender. Bowel sounds active. No CVA tenderness. No mass felt. EXTREMITIES: No edema. Full range of motion of all extremities, equal. NEUROLOGIC: No focal deficit. Cranial nerves II through XII are grossly intact. No headache, no double vision or headache. SKIN: Not dry. Intact. Turgor - normal. LYMPHATIC: No palpable lymph nodes/no lymphedema. MUSCULOSKELETAL: Normal joints with no swelling. Muscle tone is normal. LABS: hgb 12.8, hct 34, WBC 9,600 normal differential, creatinine 0.7, BUN 9, potassium 3.1, sodium 130. ASSESSMENT: 1. Acute bronchitis and acute pneumonitis 2. Pleuritic pain 3. Dehydration 4. Flu symptoms. PLAN: 1. Continue IV antibiotics 2. Continue steroids 3. Continue NEBS treatment 4. Continue Normal saline with potassium supplements CONDITION: Stable TIME SPENT: More than 30 minutes. Plan and coordination of the patient's care discussed in the presence of nurse. LINH
--- NOTE | 2017-06-10 08:59 | PN ---
DATE OF SERVICE: 06/07/17 SUBJECTIVE: 77 year old white male hospitalized with flu type of symptoms, weakness, bronchitis, pleuritic type of pain. The patient was ruled out to have MS or ischemia. His cardiac status was normal. His echo showed LVH with enlarged LA cavity. LV contractility was normal and he did not have any CHF. The patient was treated with antibiotics and steroids. IV fluids were given. His condition has improved. He is counseled about the smoking. CONDITION: Stable The patient was seen and examined with the Nurse Practitioner and Garbage Collection Supervisor. TIME SPENT: More than 30 minutes. Plan and coordination of the patient's care discussed in the presence of nurse. LINH
--- NOTE | 2017-06-10 09:01 | PN ---
06/03/17: Level 5 06/04/17: Intermediate 06/05/17: Intermediate 06/06/17: Intermediate 06/07/17: D as in discharge MTDD
== END 2017-06-07 11:04 | disposition home or self-care (01) | DRG 204 ==
LOC: MEDSURG B 09:18
PROVIDERS: ADMIT Internal Medicine; ATTEND Internal Medicine
DX: R07.81 Pleurodynia (principal); J44.1 Chronic obstructive pulmonary disease with (acute) exacerbation; J44.0 Chronic obstructive pulmonary disease with (acute) lower respiratory infection; E87.1 Hypo-osmolality and hyponatremia; J20.9 Acute bronchitis, unspecified; I51.7 Cardiomegaly; I10 Essential (primary) hypertension; E86.0 Dehydration; E87.6 Hypokalemia; I95.9 Hypotension, unspecified; I25.10 Atherosclerotic heart disease of native coronary artery without angina pectoris; I45.4 Nonspecific intraventricular block; I65.29 Occlusion and stenosis of unspecified carotid artery; R19.7 Diarrhea, unspecified; E78.5 Hyperlipidemia, unspecified; K21.9 Gastro-esophageal reflux disease without esophagitis; N40.0 Benign prostatic hyperplasia without lower urinary tract symptoms; M47.9 Spondylosis, unspecified; F17.200 Nicotine dependence, unspecified, uncomplicated; Z95.1 Presence of aortocoronary bypass graft; Z79.899 Other long term (current) drug therapy
CPT/HCPCS: 36415; 80053; 81001; 82550; 82803; 83874; 83880; 84439; 84443; 84484; 85025; 85379; 93005; 93010

== ENCOUNTER 2017-06-09 08:27 | Outpatient (CLI) ==
[2017-06-09 09:12] LABS: BASOPHILS % (AUTO) 0.1 % (0.0-3.0); EOSINOPHILS % (AUTO) 0.1 % (0.0-7.0); HEMATOCRIT 36.5 % (42.0-52.0); LYMPHOCYTES # (AUTO) 1.7 K/uL (0.60-3.4); LYMPHOCYTES % (AUTO) 18.3 (10.0-50.0); MEAN CORPUSCULAR HGB CONC 37.8 (31.8-35.4); MEAN CORPUSCULAR VOLUME 89.9 fl (80.0-94.0); MONOCYTES # (AUTO) 0.9 K/uL (0.4-2.0); MONOCYTES % (AUTO) 9.7 (0-10); NEUTROPHILS # (AUTO) 6.6 K/ul (2.0-6.9); NEUTROPHILS % (AUTO) 69.8; PLATELET COUNT 208 10^3/uL (140-440); RED BLOOD COUNT 4.06 10^6/ul (4.70-6.10); WHITE BLOOD COUNT 9.42 K/ul (4.2-10.2)
[2017-06-09 09:32] LABS: HEMOGLOBIN 13.8 g/dl (14.0-18.0)
[2017-06-09 09:48] LABS: ALBUMIN 3.5 g/dL (3.4-5.0); ALBUMIN/GLOBULIN RATIO 1.17; ANION GAP 14.5; BILIRUBIN,TOTAL 0.96 mg/dL (0.00-1.20); BUN/CREATININE RATIO 14.81; CALCIUM 9.5 mg/dL (8.2-10.2); CREATININE 0.81 mg/dL (0.60-1.10); POTASSIUM 3.5 mmol/L (3.5-5.1); TOTAL PROTEIN 6.5 g/dL (5.8-8.1)
== END 2017-06-09 08:28 | disposition home or self-care (01) ==
LOC: LAB 08:27
PROVIDERS: ATTEND Internal Medicine
DX: J40 Bronchitis, not specified as acute or chronic (principal); D64.9 Anemia, unspecified; E87.6 Hypokalemia; E86.0 Dehydration
CPT/HCPCS: 36415; 80053; 85025

== ENCOUNTER 2018-04-21 09:47 | Outpatient (CLI) ==
--- NOTE | 2018-04-21 10:36 | CT ---
EXAM: CT abdomen pelvis without contrast HISTORY: Hematuria COMPARISON: None TECHNIQUE: CT abdomen pelvis performed without intravenous contrast. Coronal and sagittal reformatt ed images obtained. FINDINGS: Bibasilar subsegmental atelectasis and/or scarring. Granulomatous calcification right low er lobe. No free air. No acute abnormalities of the bones. Degenerative change in the spine. Hear t normal in size. Evaluation organ parenchyma limited without contrast. Liver unremarkable. Granul omas calcification in the liver. Liver otherwise unremarkable. Gallbladder unremarkable. Pancreas unremarkable. Granulomas calcification in the spleen. Spleen otherwise unremarkable. Adrenals unre markable. No hydronephrosis or nephrolithiasis. No calculi visualized in normal course of the urete rs. There are several calculi in the dependent aspect of the bladder. Areas of bladder wall calcifi cation not excluded, though considered unlikely. There is bladder wall thickening and bladder diverti cula. Prostate markedly enlarged, indenting the bladder base. Small fat-containing left inguinal he rnia. Aorta normal in caliber. Mild to moderate atherosclerosis. No lymphadenopathy or ascites. S mall hiatal hernia. No dilated loops small bowel. Appendix appears normal. Colon unremarkable. IMPRESSION: 1. No hydronephrosis or nephrolithiasis. 2. Multiple bladder calculi. Areas of bladder wall calcification not excluded, though favored unlik cristino. 3. Markedly enlarged prostate indenting the bladder base. Bladder diverticula and bladder wall thic kening may relate to changes of chronic outlet obstruction or cystitis. 4. Small hiatal hernia.
== END 2018-04-21 09:48 | disposition home or self-care (01) ==
LOC: RAD 09:47
PROVIDERS: ATTEND Internal Medicine
DX: R31.9 Hematuria, unspecified (principal); Z12.5 Encounter for screening for malignant neoplasm of prostate
CPT/HCPCS: 36415

== ENCOUNTER 2021-11-15 09:28 | Inpatient (IN) ==
[2021-11-15] MEDS ORDERED: SODIUM CHLORIDE 1,000 ML IV STA (09:49)
--- NOTE | 2021-11-15 09:49 | ED.PDOC ---
General ED Provider: Dr. JOSUE SANDRA MD Chief Complaint: Weakness Stated Complaint: diarrhea, weakness Time Seen by Provider: 11/15/21 09:48 Mode of Arrival: Wheelchair Information Source: Patient and Family Primary Care Provider: BALTA ASENCIO Nursing and Triage Documentation Reviewed and Agree: Yes Does patient meet sepsis criteria?: No System Inflammatory Response Syndrome: Not Applicable Sepsis Protocol: For patient's 13 years and over: Temp is 96.8 and below OR 101 and greater Pulse >90 BPM Resp >20/minute Acutely Altered Mental Status Are patient's symptoms suggestive of a new infection, such as: -Pneumonia -Skin, Soft Tissue -Endocarditis -UTI -Bone, Joint Infection -Implantable Device -Acute Abdominal Infection -Wound Infection -Meningitis -Blood Stream Catheter Infection -Unknown GI Complaint Exam Vomiting/Diarrhea Complaint/Exam Onset/Duration: diarrhea for one day Symptoms Are: Still present Episodes of Vomiting over last 24 Hours: 0 Episodes of Diarrhea Over Last 24 Hours: 12 Initial Severity: Moderate Current Severity: Severe Character of Diarrhea: Reports Watery Aggravating: Reports None Alleviating: Reports None Associated Signs and Symptoms: Reports Light-headedness (generalized weakness) Last Oral Intake: two hours ago Last Bowel Movement: 2 hours ago Non-GI Risk Factors: Reports None Surgical Obstruction Risk Factors: Reports None Related Surgical History: Reports None Abdominal Findings: Present None K[place] Respirations Present: No Differential Diagnoses: Dehydration and Viral Gastroenteritis Review of Systems Review Of Systems Constitutional: Reports Weakness Eyes: Reports No symptoms Ears, Nose, Mouth, Throat: Reports No symptoms Respiratory: Reports Cough (chronic cough) Cardiac: Reports No symptoms GI: Reports Diarrhea, Poor appetite and Poor fluid intake : Reports No symptoms Musculoskeletal: Reports No symptoms Skin: Reports No symptoms Neurological: Reports No symptoms Endocrine: Reports No symptoms Hematologic/Lymphatic: Reports No symptoms All Other Systems: Reviewed and Negative Physical Exam Physical Exam Appearance: Reports Ill-appearing (patient appears to feel poorly), No pain distress and Thin Ill-appearing: Moderate Pain Distress: None Eyes: Reports ANGELINA and Conjunctiva clear ENT: Reports Nose normal, Oropharynx normal and Dry mucosa Neck: Supple Respiratory: Reports Airway patent, Breath sounds clear and Breath sounds equal Cardiovascular: Reports RRR, No rub and No murmur GI/: Reports Soft, Nontender, No masses and Bowel sounds normal Musculoskeletal: Reports Normal strength, ROM intact and No edema Skin: Reports Warm, Dry and Normal color Neurological: Reports Sensation intact, Motor intact, Cranial nerves intact, Alert and Oriented Psychiatric: Reports Affect appropriate and Mood appropriate Interpretation EKG Interpretation Time of EKG #1: 10:32 Rate: Normal and Kd Rhythm: Sinus Ectopy: None [place]: NL ST Segment: Normal Interpretation: RBBB, no acute changes Re-Evaluation Re-Evaluation Time of Re-Evaluation: 11:54 Status: Unchanged (patient still complaining of weakness) Vital Signs Stable: Yes Critical Care Note Critical Care Note Total Critical Care Time (mins): 0 Course Course Hematology/Chemistry: 11/15/21 10:00 11/15/21 10:00 Orders, Labs, Meds: Lab Review 11/15/21 11/15/21 11/15/21 10:00 10:00 11:15 WBC 4.49 RBC 4.68 L Hgb 15.6 Hct 42.1 MCV 90.0 MCH 33.3 H MCHC 37.1 H RDW Coeff of [place] 12.3 Plt Count 144 Immature Gran % (Auto) 0.4 Neut % (Auto) 44.1 Lymph % (Auto) 41.2 [place] % (Auto) 9.8 Eos % (Auto) 3.8 Baso % (Auto) 0.7 Neut # (Auto) 2.0 Lymph # (Auto) 1.9 [place] # (Auto) 0.4 Eos # (Auto) 0.2 Baso # (Auto) 0.0 Immature Gran # (Auto) 0.0 Sodium 128.6 L Potassium 3.46 L Chloride 96.6 L Carbon Dioxide 23.1 Anion Gap 12.36 BUN 16.0 Creatinine 0.85 Estimated GFR (MDRD) 86.00 BUN/Creatinine Ratio 18.82 Glucose 95.2 Calcium 9.38 Total Bilirubin 0.89 AST 39.5 ALT 15.4 Alkaline Phosphatase 102.4 Troponin I < 0.012 Total Protein 8.00 Albumin 4.77 Globulin 3.23 Albumin/Globulin Ratio 1.47 TSH 3.520 Urine Color Urine Clarity Urine pH Ur Specific [place] Urine Protein Urine Glucose (UA) Urine Ketones Urine Blood Urine Nitrite Urine Bilirubin Urine Urobilinogen Ur Leukocyte Esterase Urine Microscopic RBC Urine Microscopic WBC Ur Squamous Epith Cells Urine Bacteria SARS-CoV-2 Ag (Rapid) Negative 11/15/21 11:44 WBC RBC Hgb Hct MCV MCH MCHC RDW Coeff of [place] Plt Count Immature Gran % (Auto) Neut % (Auto) Lymph % (Auto) [place] % (Auto) Eos % (Auto) Baso % (Auto) Neut # (Auto) Lymph # (Auto) [place] # (Auto) Eos # (Auto) Baso # (Auto) Immature Gran # (Auto) Sodium Potassium Chloride Carbon Dioxide Anion Gap BUN Creatinine Estimated GFR (MDRD) BUN/Creatinine Ratio Glucose Calcium Total Bilirubin AST ALT Alkaline Phosphatase Troponin I Total Protein Albumin Globulin Albumin/Globulin Ratio TSH Urine Color Yellow Urine Clarity Cloudy Urine pH 6.5 Ur Specific [place] 1.020 Urine Protein 1+ H Urine Glucose (UA) Negative Urine Ketones Negative Urine Blood 2+ H Urine Nitrite Negative Urine Bilirubin Negative Urine Urobilinogen 0.2 Ur Leukocyte Esterase 3+ H Urine Microscopic RBC 5-10 Urine Microscopic WBC 30-50 Ur Squamous Epith Cells Not present Urine Bacteria 2+ SARS-CoV-2 Ag (Rapid) Orders Category Date Time Status EKG-(ED ONLY) Stat CARDIO 11/15/21 09:49 Completed [place] [ED IV/MEDIPORT/POWERPORT] .ONCE EMERGENCY 11/15/21 09:49 Active CBC W/ AUTO DIFF Stat LAB 11/15/21 10:00 Completed CMP [COMPREHENSIVE METABOLIC PANEL] Stat LAB 11/15/21 10:00 Completed COVID-19 ANTIGEN TEST Stat LAB 11/15/21 11:15 Completed THYROID STIMULATING HORMONE Stat LAB 11/15/21 10:00 Completed TROPONIN I Stat LAB 11/15/21 10:00 Completed URINALYSIS C & S IF INDICATED Stat LAB 11/15/21 11:44 Completed URINE CULTURE Stat LAB 11/15/21 11:44 Received 0.9 % Sodium Chloride [Saline Flush] MEDS 11/15/21 09:49 Active 1 syr IVF PRN PRN Sodium Chloride 0.9% [Sodium Chloride] 1,000 ml MEDS 11/15/21 09:49 Discontinued IV BOLUS Medications Generic Name Dose Route Start Last Admin Trade Name Freq PRN Reason Stop Dose Admin Sodium Chloride 1 syr 11/15/21 09:49 0.9% Sodium Chloride 10 Ml Disp.Syrin IVF PRN PRN To flush IV Discontinued Medications Generic Name Dose Route Start Last Admin Trade Name Freq PRN Reason Stop Dose Admin Sodium Chloride 1,000 mls @ 1,000 mls/hr 11/15/21 09:49 11/15/21 10:20 Sodium Chloride IV 11/15/21 10:48 1,000 mls/hr BOLUS STA Administration Vital Signs: Temp Pulse Resp BP Pulse Ox 11/15/21 09:29 97.3 F L 56 L 17 131/82 99 Discharge Plan Discharge Patient Disposition: ADMITTED INPATIENT Discharge Problem: Acute hyponatremia, Generalized weakness, Hypokalemia, Acute urinary tract infection ED Provider: JOSUE SANDRA Condition: Stable Physician Progress Note: [] Patient care discussed with Dr Asencio and patient will be admitted for treatment of his hyponatremia and generalized weakness.
[2021-11-15 10:05] LABS: BASOPHILS % (AUTO) 0.7 % (0.0-3.0); EOSINOPHILS # (AUTO) 0.2 K/ul (0.0-0.7); EOSINOPHILS % (AUTO) 3.8 % (0.0-7.0); HEMATOCRIT 42.1 % (42.0-52.0); HEMOGLOBIN 15.6 g/dl (14.0-18.0); IMMATURE GRANULOCYTE % (AUTO) 0.4 % (0.0-5.0); LYMPHOCYTES # (AUTO) 1.9 K/uL (0.60-3.4); LYMPHOCYTES % (AUTO) 41.2 (10.0-50.0); MEAN CORPUSCULAR HEMOGLOBIN 33.3 pg (27.0-31.0); MEAN CORPUSCULAR HGB CONC 37.1 (31.8-35.4); MONOCYTES # (AUTO) 0.4 K/uL (0.4-2.0); MONOCYTES % (AUTO) 9.8 (0-10); NEUTROPHILS % (AUTO) 44.1 % (42.2-75.2); PLATELET COUNT 144 10^3/uL (140-440); RDW COEFFICIENT OF VARIATION 12.3 % (11.6-14.8); RED BLOOD COUNT 4.68 10^6/ul (4.70-6.10); WHITE BLOOD COUNT 4.49 K/ul (4.2-10.2)
[2021-11-15 10:17] LABS: ALANINE AMINOTRANSFERASE 15.4 U/L (0-50); ALBUMIN 4.77 g/dL (3.5-5.0); ALKALINE PHOSPHATASE 102.4 U/L (56-119); ASPARTATE AMINO TRANSFERASE 39.5 U/L (17-59); BILIRUBIN,TOTAL 0.89 mg/dL (0.2-1.3); CALCIUM 9.38 mg/dL (8.4-10.2); CARBON DIOXIDE 23.1 mmol/L (22-30.0); CHLORIDE 96.6 mmol/L (98-107); CREATININE 0.85 mg/dL (0.60-1.10); GLUCOSE 95.2 mg/dL (74-106); POTASSIUM 3.46 mmol/L (3.5-5.1); SODIUM 128.6 mmol/L (134.5-145)
[2021-11-15 10:51] LABS: TROPONIN I < 0.012 ng/ml (0.0000-0.120)
[2021-11-15 11:50] LABS: BILIRUBIN,URINE Negative (NEGATIVE); CLARITY,URINE Cloudy (CLEAR); COLOR,URINE Yellow (YELLOW); GLUCOSE, URINE (UA) Negative (NEGATIVE); KETONES,URINE Negative (NEGATIVE); LEUKOCYTE ESTERASE ,URINE 3+ (NEGATIVE); NITRITE,URINE Negative (NEGATIVE); PH,URINE 6.5 (5-9); PROTEIN,URINE 1+ (NEGATIVE); URINE, BLOOD 2+ (NEGATIVE); UROBILINOGEN,URINE 0.2 (0.2)
[2021-11-15 11:52] LABS: BACTERIA,URINE 2+ (NOT PRESENT); SQUAMOUS EPITHELIAL CELL,UR NOT PRESENT (0-5); URINE WBC, MICROSCOPIC 30-50 (0-2)
[2021-11-15] MEDS ORDERED: DUONEB NEB PRN (13:34)
[2021-11-15 13:35] VITALS: BMI 20.9
[2021-11-15] MEDS: ROCEPHIN 1 GM/50 ML D5W 1 GM/50 ML BAG IV SCH (13:45)
[2021-11-15] MEDS: SODIUM CHLORIDE 0.9%-KCL 20 MEQ 1,000 ML IV SCH (13:45)
[2021-11-15] MEDS ORDERED: ATROPINE SULFATE PFS IVP PRN (13:56)
[2021-11-15] MEDS ORDERED: TYLENOL PO PRN (13:56)
[2021-11-15] MEDS ORDERED: NITROSTAT SL PRN (13:56)
[2021-11-15] MEDS ORDERED: IMODIUM PO PRN (14:15)
--- NOTE | 2021-11-15 15:41 | DI ---
EXAM: Chest two views HISTORY: Short of breath COMPARISON: 10/16/2021 FINDINGS: Cardiac silhouette normal size with change of prior median sternotomy. Lungs are hyperinf lated. No pulmonary consolidation, pulmonary edema or pleural fluid is seen. Minimal atelectasis or scarring left lung base. Postsurgical changes cervical spine, hardware intact. IMPRESSION: No acute cardiopulmonary finding is seen Lungs are hyperinflated, possible chronic obstructive pulmonary disease Postsurgical changes
[2021-11-15] MEDS: FLOMAX PO SCH (16:56)
[2021-11-15] MEDS: ASPIRIN EC PO SCH (16:56)
[2021-11-15] MEDS: COZAAR PO SCH (16:56)
[2021-11-15] MEDS ORDERED: DUONEB NEB SCH (18:00)
[2021-11-16 05:31] LABS: BASOPHILS % (AUTO) 0.8 % (0.0-3.0); EOSINOPHILS # (AUTO) 0.2 K/ul (0.0-0.7); EOSINOPHILS % (AUTO) 4.4 % (0.0-7.0); HEMATOCRIT 39.8 % (42.0-52.0); HEMOGLOBIN 14.7 g/dl (14.0-18.0); IMMATURE GRANULOCYTE % (AUTO) 0.4 % (0.0-5.0); LYMPHOCYTES # (AUTO) 1.9 K/uL (0.60-3.4); LYMPHOCYTES % (AUTO) 38.9 (10.0-50.0); MEAN CORPUSCULAR HEMOGLOBIN 33.3 pg (27.0-31.0); MEAN CORPUSCULAR HGB CONC 36.9 (31.8-35.4); MEAN CORPUSCULAR VOLUME 90.2 fl (80.0-94.0); MONOCYTES # (AUTO) 0.4 K/uL (0.4-2.0); MONOCYTES % (AUTO) 8.5 (0-10); NEUTROPHILS # (AUTO) 2.3 K/ul (2.0-6.9); PLATELET COUNT 132 10^3/uL (140-440); RDW COEFFICIENT OF VARIATION 12.2 % (11.6-14.8); RED BLOOD COUNT 4.41 10^6/ul (4.70-6.10); WHITE BLOOD COUNT 4.81 K/ul (4.2-10.2)
[2021-11-16 05:49] LABS: ALANINE AMINOTRANSFERASE 12.3 U/L (0-50); ALBUMIN 4.42 g/dL (3.5-5.0); ALKALINE PHOSPHATASE 86.9 U/L (56-119); ASPARTATE AMINO TRANSFERASE 34.5 U/L (17-59); BILIRUBIN,TOTAL 0.83 mg/dL (0.2-1.3); BLOOD UREA NITROGEN 11.4 mg/dL (9-20); CALCIUM 9.13 mg/dL (8.4-10.2); CHLORIDE 98.7 mmol/L (98-107); CREATININE 0.69 mg/dL (0.60-1.10); GLUCOSE 91.6 mg/dL (74-106); POTASSIUM 3.44 mmol/L (3.5-5.1); SODIUM 129.5 mmol/L (134.5-145); TOTAL PROTEIN 7.39 g/dL (6.3-8.2)
[2021-11-16] MEDS: SODIUM CHLORIDE 0.9%-KCL 20 MEQ 1,000 ML IV SCH ×2 (08:31→23:24)
[2021-11-16] MEDS ORDERED: LOMOTIL PO PRN (08:38)
[2021-11-16] MEDS: PRILOSEC PO SCH (08:42)
[2021-11-16] MEDS: ROCEPHIN 1 GM/50 ML D5W 1 GM/50 ML BAG IV SCH (08:42)
[2021-11-16] MEDS: K-DUR PO SCH (09:09)
--- NOTE | 2021-11-16 09:52 | PCM.PROG ---
Attending Provider: ATTENDING PROVIDER: Dr. BALTA ASENCIO This patient is seen with Lea Jackson, Nurse Practitioner. DATE OF SERVICE: 11/16/21 SUBJECTIVE: This 81 year old /WHITE M was hospitalized 11/15/21. The patient has two episodes of diarrhea this morning. Sugars were in 80s and feeling weak. ER did not do respiratory PCR, we will get that ordered. Sodium and Potassium about the same. REVIEW OF SYSTEMS: CONSTITUTIONAL: No night sweats. No fatigue, malaise, lethargy. No fever or chills. Weakness. HEENT: Eyes: No visual changes. No eye pain. No eye discharge. ENT: No runny nose. No epistaxis. No sinus pain. No odynophagia. No congestion. RESPIRATORY: No cough, no congestion. No hemoptysis. No shortness of breath. CARDIOVASCULAR: No angina symptoms. No CHF symptoms. No atypical chest pain for CAD. No palpitations. No orthopnea.. GASTROINTESTINAL: No abdominal pain. No nausea or vomiting. Diarrhea. No hematemesis. No hematochezia. GENITOURINARY: No urgency. No frequency. No dysuria. No hematuria. No obstructive symptoms. No discharge. No pain. No significant abnormal bleeding. MUSCULOSKELETAL: No musculoskeletal pain; no joint swelling. NEUROLOGICAL: Awake, alert, oriented to time, place and person. No headache. No neck pain. No syncope. No seizures. No dizziness. PSYCHIATRIC: Not anxious. No depression. No suicidal thoughts. No homicidal th oughts. SKIN: No rash. No lesions. No wounds. ENDOCRINE: No unexplained weight loss. No weight gain. HEMATOLOGIC/LYMPHATIC: No anemia. No purpura. No petechiae. No prolonged or excessive bleeding. No palpable lymph nodes. PHYSICAL EXAMINATION: GENERAL: The patient is awake, alert and oriented, lying in bed in no distress. VITAL SIGNS: Temperature 98.1 F, Pulse 61, Respiratory Rate 20, BP 141/75, Pulse Ox 99% HEENT: Head normocephalic, atraumatic. Eyes: Extraocular muscles are intact. Pupils are equal, round and reactive to light and accommodation. Ears: No l esions. Nose appeared normal. Throat: No exudate or erythema. NECK: Supple. No JVD, no carotid bruit. No lymphadenopathy or thyromegaly. LUNGS: Diminished breath sounds. Clear to auscultation. Percussion note normal. Chest symmetrical. HEART: S1, S2, no S3. No murmurs. No cyanosis or clubbing. No ascites. Pulses: Dorsalis pedis and posterior tibial pulses +1 to +2 both sides. ABDOMEN: Soft. Non-tender. Bowel sounds active. No CVA tenderness. No mass felt. EXTREMITIES: No edema. Full range of motion of all extremities, equal. NEUROLOGIC: No focal deficit. Cranial nerves II through XII are grossly intact. No headache. No double vision. SKIN: Not dry. Intact. Turgor-normal. LYMPHATIC: No palpable lymph nodes/no lymphedema. MUSCULOSKELETAL: Normal joints with no swelling. Muscle tone is normal. LAB REVIEW: 11/16/21 05:04 11/16/21 05:04 11/16/21 05:04: Sodium 129.5 L, Potassium 3.44 L, Chloride 98.7, Carbon Dioxide 24.0, Anion Gap 10.24, BUN 11.4, Creatinine 0.69, Estimated GFR (MDRD) 110.00, BUN/Creatinine Ratio 16.52, Glucose 91.6, Calcium 9.13, Total Bilirubin 0.83, AST 34.5, ALT 12.3, Alkaline Phosphatase 86.9, Total Protein 7.39, Albumin 4.42, Globulin 2.97, Albumin/Globulin Ratio 1.48 11/16/21 05:04: WBC 4.81, RBC 4.41 L, Hgb 14.7, Hct 39.8 L, MCV 90.2, MCH 33.3 H , MCHC 36.9 H, RDW Coeff of [place]uki 12.2, Plt Count 132 L, Immature Gran % (Auto) 0.4, Neut % (Auto) 47.0, Lymph % (Auto) 38.9, [place] % (Auto) 8.5, Eos % (Auto) 4.4, Baso % (Auto) 0.8, Neut # (Auto) 2.3, Lymph # (Auto) 1.9, [place] # (Auto) 0.4, Eos # (Auto) 0.2, Baso # (Auto) 0.0, Immature Gran # (Auto) 0.0 11/15/21 11:44: Urine Color Yellow, Urine Clarity Cloudy, Urine pH 6.5, Ur Sp ecific [place] 1.020, Urine Protein 1+ H, Urine Glucose (UA) Negative, Urine Ketones Negative, Urine Blood 2+ H, Urine Nitrite Negative, Urine Bilirubin Negative, Urine Urobilinogen 0.2, Ur Leukocyte Esterase 3+ H, Urine Microscopic RBC 5-10, Urine Microscopic WBC 30-50, Ur Squamous Epith Cells Not present, Urine Bacteria 2+ 11/15/21 11:15: SARS-CoV-2 Ag (Rapid) Negative 11/15/21 10:00: Sodium 128.6 L, Potassium 3.46 L, Chloride 96.6 L, Carbon Dioxide 23.1, Anion Gap 12.36, BUN 16.0, Creatinine 0.85, Estimated GFR (MDRD) 86.00, BUN/Creatinine Ratio 18.82, Glucose 95.2, Calcium 9.38, Total Bilirubin 0.89, AST 39.5, ALT 15.4, Alkaline Phosphatase 102.4, Troponin I < 0.012, Total Protein 8.00, Albumin 4.77, Globulin 3.23, Albumin/Globulin Ratio 1.47, TSH 3.520 11/15/21 10:00: WBC 4.49, RBC 4.68 L, Hgb 15.6, Hct 42.1, MCV 90.0, MCH 33.3 H, MCHC 37.1 H, RDW Coeff of [place] 12.3, Plt Count 144, Immature Gran % (Auto) 0.4, Neut % (Auto) 44.1, Lymph % (Auto) 41.2, [place] % (Auto) 9.8, Eos % (Auto) 3.8, Baso % (Auto) 0.7, Neut # (Auto) 2.0, Lymph # (Auto) 1.9, [place] # (Auto) 0.4, Eos # (Auto) 0.2, Baso # (Auto) 0.0, Immature Gran # (Auto) 0.0 ASSESSMENT: Please see below. 1. Acute gastritis 2. Hyponatremia 3. Hypokalemia 4. UTI, culture pending 5. COPD PLAN: 1. CT abdomen and pelvis this morning with and without 2. Respiratory PCR 3. GI panel by PCR 4. Discontinue Immodium 5. Lomotil 2.5mg TID Plan and coordination of the patient's care discussed in the presence of Driver Merchandiser and nurse. SCRIBED BY: MUNIRA GUTIERREZ, Land Surveyor scribed while in presence of service performed by Dr. Asencio/Lea Jackson APRN on 11/16/21 ([id number])
[2021-11-16 09:53] LABS: BORDETELLA PARAPERTUSSIS (PCR) NOT DETECTED (NOT DETECT); BORDETELLA PERTUSSIS (PCR) NOT DETECTED (NOT DETECT); CHLAMYDIA PNEUMONIAE (PCR) NOT DETECTED (NOT DETECT); CORONAVIRUS 229E (PCR) NOT DETECTED (NOT DETECT); CORONAVIRUS HKU1 (PCR) NOT DETECTED (NOT DETECT); CORONAVIRUS NL63 (PCR) NOT DETECTED (NOT DETECT); CORONAVIRUS OC43 (PCR) NOT DETECTED (NOT DETECT); HUMAN METAPNEUMOVIRUS (PCR) NOT DETECTED (NOT DETECT); HUMAN RHINOVIRUS/ENTEROV (PCR) NOT DETECTED (NOT DETECT); INFLUENZA B (PCR) NOT DETECTED (NOT DETECT); MYCOPLASMA PNEUMONIAE (PCR) NOT DETECTED (NOT DETECT); PARAINFLUENZA VIRUS 1 (PCR) NOT DETECTED (NOT DETECT); PARAINFLUENZA VIRUS 2 (PCR) NOT DETECTED (NOT DETECT); PARAINFLUENZA VIRUS 3 (PCR) NOT DETECTED (NOT DETECT); PARAINFLUENZA VIRUS 4 (PCR) NOT DETECTED (NOT DETECT); RESPIRATORY SYNCYTIAL V (PCR) NOT DETECTED (NOT DETECT); SARS_COV_2 (PCR) NOT DETECTED (NOT DETECT)
[2021-11-16 09:53] LABS: ADENOVIRUS F40/41 (PCR) NOT DETECTED (NOT DETECT); CAMPYLOBACTER (PCR) NOT DETECTED (NOT DETECT); CRYPTOSPORIDIUM (PCR) NOT DETECTED (NOT DETECT); CYCLOSPORA CAYETANENSIS (PCR) NOT DETECTED (NOT DETECT); ENTAMOEBA HISTOLYTICA (PCR) NOT DETECTED (NOT DETECT); ENTEROAGGREGATIVE E.COLI (PCR) NOT DETECTED (NOT DETECT); GIARDIA LAMBLIA (PCR) NOT DETECTED (NOT DETECT); NOROVIRUS GI/GII (PCR) NOT DETECTED (NOT DETECT); PLESIOMONAS SHIGELLOIDES (PCR) NOT DETECTED (NOT DETECT); ROTAVIRUS A (PCR) NOT DETECTED (NOT DETECT); SALMONELLA(PCR) NOT DETECTED (NOT DETECT); SAPOVIRUS (PCR) NOT DETECTED (NOT DETECT); SHIGA-LIKE TOXIN E.COLI (PCR) NOT DETECTED (NOT DETECT); VIBRIO (PCR) NOT DETECTED (NOT DETECT); VIBRIO CHOLERAE (PCR) NOT DETECTED (NOT DETECT); YERSINIA ENTEROCOLITICA (PCR) NOT DETECTED (NOT DETECT)
[2021-11-16 10:41] LABS: ADENOVIRUS (PCR) NOT DETECTED (NOT DETECT)
[2021-11-16 11:10] LABS: ASTROVIRUS (PCR) DETECTED (NOT DETECT); C DIFF A/B (PCR) NOT DETECTED (NOT DETECT)
--- NOTE | 2021-11-16 12:09 | CT ---
EXAM: CT abdomen pelvis without contrast HISTORY: Diarrhea COMPARISON: CT abdomen pelvis 04/21/2018 TECHNIQUE: Serial axial images of the abdomen pelvis were performed from the lung bases through the inferior pelvis without contrast. These were viewed in multiple planes. FINDINGS: The lung bases are clear. Evaluation is limited due to lack of contrast. The liver is unremarkable. The gallbladder is disten ded. The adrenal glands are normal. The kidneys are unremarkable. The spleen demonstrates calcifie d granulomas. Pancreas is unremarkable. The stomach is distended. Small bowel in the abdomen pelvis is unremarkable. The appendix is normal. The colon is unremarkabl e. The urinary bladder is distended and lobular with multiple diverticuli. The prostate is enlarged . There is no free air, free fluid or lymphadenopathy. There is mild atherosclerotic disease. Ther e is degenerative disease of the spine. IMPRESSION: 1. No acute intra-abdominal or pelvic process by to account for patient's symptoms. 2. Urinary bladder demonstrates persistent multiple diverticuli. 3. Sequela of old granulomatous disease. 4. The prostate is enlarged. All CT scans are performed using dose optimization techniques as appropriate to the performed exam an d include at least one of the following: Automated exposure control, adjustment of the mA and/or kV according t o size, and the use of iterative reconstruction technique.
--- NOTE | 2021-11-16 14:51 | PN ---
DATE OF SERVICE: 11/15/21 SUBJECTIVE: The patient was seen and examined in the emergency room and then hospitalized. The patient's main problem is the weakness. Specific complaints were noted. On further questioning the patient has diarrhea a day and a half that has made him really weak. The patient is a heavy smoker with severe chronic lung disease. The patient has osteoporosis. The patient has declined bone density for the past year. In the past he had declined any workup. REVIEW OF SYSTEMS: CONSTITUTIONAL: No night sweats. No fatigue, malaise, lethargy. No fever or chills. HEENT: Eyes: No visual changes. No eye pain. No eye discharge. ENT: No runny nose. No epistaxis. No sinus pain. No sore throat. No odynophagia. No congestion. RESPIRATORY: No cough, no congestion. No hemoptysis. No shortness of breath. CARDIOVASCULAR: No angina symptoms. No CHF symptoms. No atypical chest pain for CAD. No palpitations. No PND. No orthopnea. GASTROINTESTINAL: No abdominal pain. No nausea or vomiting. No diarrhea or constipation. No hematemesis. No hematochezia. GENITOURINARY: No urgency. No frequency. No dysuria. No hematuria. No obstructive symptoms. No discharge. No pain. No significant abnormal bleeding. MUSCULOSKELETAL: No musculoskeletal pain; no joint swelling. NEUROLOGICAL: No headache. No neck pain. No syncope. No seizures. No dizziness. PSYCHIATRIC: Not anxious. No depression. No suicidal thoughts. No homicidal thoughts. SKIN: No rash. No lesions. No wounds. ENDOCRINE: No unexplained weight loss. No weight gain. HEMATOLOGIC/LYMPHATIC: No anemia. No purpura. No petechiae. No prolonged or excessive bleeding. No palpable lymph nodes. PHYSICAL EXAMINATION: HEENT: Head normocephalic, atraumatic. Eyes: Extraocular muscles are intact. Pupils are equal, round and reactive to light and accommodation. Ears: No lesions. Nose appeared normal. Throat: No exudate or erythema. NECK: Supple. No JVD, no carotid bruit. No lymphadenopathy or thyromegaly. LUNGS: Decreased breath sounds but clear to auscultation. Percussion note normal. Chest symmetrical. HEART: S1, S2, no S3. No murmurs. No cyanosis or clubbing. No ascites. Pulses: Dorsalis pedis and posterior tibial pulses +1 to +2 bilaterally. ABDOMEN: Soft. Nontender. Bowel sounds active. No CVA tenderness. No mass felt. EXTREMITIES: No edema. Full range of motion of all extremities, equal. NEUROLOGIC: No focal deficit. Cranial nerves II through XII are grossly intact. No headache. No double vision. SKIN: Not dry. Intact. Turgor - normal. LYMPHATIC: No palpable lymph nodes/no lymphedema. MUSCULOSKELETAL: Normal joints with no swelling. Muscle tone is normal. LABS: COVID negative. Labs are all acceptable. Mild hyponatremia ASSESSMENT: 1. Mild dehydration and electrolyte imbalance 2. Colitis 3. Evidence of urinary tract infection 4. Bradyarrhythmia, his Atenolol has put on hold PLAN: 1. Give IV antibiotics 2. IV fluids 3. Continue to monitor the patient's markers 4. Echocardiogram 5. Carotid scan is going to be done 6. CT scan of the head CONDITION: Stable. TIME SPENT: More than 30 minutes. Plan and coordination of the patient's care discussed in the presence of nurse. LINH
[2021-11-16] MEDS: FLOMAX PO SCH (17:24)
[2021-11-16] MEDS: ASPIRIN EC PO SCH (17:24)
[2021-11-16] MEDS: COZAAR PO SCH (17:24)
[2021-11-17 05:04] LABS: BASOPHILS % (AUTO) 0.9 % (0.0-3.0); EOSINOPHILS # (AUTO) 0.2 K/ul (0.0-0.7); EOSINOPHILS % (AUTO) 3.7 % (0.0-7.0); HEMATOCRIT 38.8 % (42.0-52.0); HEMOGLOBIN 14.3 g/dl (14.0-18.0); IMMATURE GRANULOCYTE % (AUTO) 0.4 % (0.0-5.0); LYMPHOCYTES # (AUTO) 2.3 K/uL (0.60-3.4); MEAN CORPUSCULAR HEMOGLOBIN 32.8 pg (27.0-31.0); MEAN CORPUSCULAR HGB CONC 36.9 (31.8-35.4); MONOCYTES # (AUTO) 0.4 K/uL (0.4-2.0); MONOCYTES % (AUTO) 8.6 (0-10); NEUTROPHILS # (AUTO) 1.6 K/ul (2.0-6.9); NEUTROPHILS % (AUTO) 35.4 % (42.2-75.2); PLATELET COUNT 123 10^3/uL (140-440); RDW COEFFICIENT OF VARIATION 12.1 % (11.6-14.8); RED BLOOD COUNT 4.36 10^6/ul (4.70-6.10); WHITE BLOOD COUNT 4.55 K/ul (4.2-10.2)
[2021-11-17 05:13] LABS: ALANINE AMINOTRANSFERASE 12.9 U/L (0-50); ALBUMIN 4.43 g/dL (3.5-5.0); ALKALINE PHOSPHATASE 85.8 U/L (56-119); ASPARTATE AMINO TRANSFERASE 30.1 U/L (17-59); BILIRUBIN,TOTAL 0.93 mg/dL (0.2-1.3); BLOOD UREA NITROGEN 7.5 mg/dL (9-20); CALCIUM 9.06 mg/dL (8.4-10.2); CARBON DIOXIDE 24.2 mmol/L (22-30.0); CHLORIDE 101.3 mmol/L (98-107); CREATININE 0.67 mg/dL (0.60-1.10); GLUCOSE 92.8 mg/dL (74-106); POTASSIUM 3.57 mmol/L (3.5-5.1); SODIUM 133.4 mmol/L (134.5-145); TOTAL PROTEIN 7.38 g/dL (6.3-8.2)
[2021-11-17 05:14] VITALS: BP 123/66; TEMP 97.8
[2021-11-17] MEDS: PRILOSEC PO SCH (06:19)
[2021-11-17] MEDS: K-DUR PO SCH (08:48)
[2021-11-17] MEDS: ROCEPHIN 1 GM/50 ML D5W 1 GM/50 ML BAG IV SCH (08:48)
[2021-11-17 09:00] LABS: BILIRUBIN,URINE Negative (NEGATIVE); CLARITY,URINE Cloudy (CLEAR); COLOR,URINE Yellow (YELLOW); GLUCOSE, URINE (UA) Negative (NEGATIVE); KETONES,URINE Negative (NEGATIVE); LEUKOCYTE ESTERASE ,URINE 2+ (NEGATIVE); NITRITE,URINE Negative (NEGATIVE); PROTEIN,URINE Negative (NEGATIVE); URINE, BLOOD 1+ (NEGATIVE); UROBILINOGEN,URINE 0.2 (0.2)
[2021-11-17 09:12] LABS: BACTERIA,URINE TRACE (NOT PRESENT); SQUAMOUS EPITHELIAL CELL,UR NOT PRESENT (0-5); URINE WBC, MICROSCOPIC 30-50 (0-2)
--- NOTE | 2021-11-17 09:28 | DS ---
DATE OF SERVICE: 11/17/21 FINAL DIAGNOSIS: 1. Acute viral gastritis 2. Positive Astrovirus 3. Hyponatremia 4. Dehydration 5. COPD 6. Hypertension 7. History of noncompliance with diet and medications. DISCHARGE INSTRUCTIONS: Discharge home. Followup with Dr. Yap/Lea Jackson APRN/Vanda Aviles APRN in the office on November 26, 2021 at 11:15am. MEDICATIONS AT DISCHARGE: Tamsul[place] 0[place] [address] Aspirin 81mg PO 1700 Losartan 50mg PO 1700 Atenolol-Chlorthalidone 50-25mg PO daily Omeprazole 20mg PO daily NEW PRESCRIPTIONS: Lomotil 2.5mg PO TID PRN DIET INSTRUCTIONS: Resume as tolerated ACTIVITY: Resume as tolerated HOSPITAL COURSE: 81 year old white male who presented to the emergency room with substantal weakness, states had diarrhea for past two days and was nauseous and very weak. U/A was abnormal with 4+ bacteria however culture was negative. COVID was negative. Kidney function was elevated on admission along with hypokalemia. He was placed on IV fluids with Potassium along with oral Potassium, has since improved. Initially the patient had 5-6 lose stools those have stopped for past 24 hours. He has had been drinking well. Weakness has improved. Repeat U/A. We will discontinue Imodium and start Lomotil 2.5mg PRN TID. He will office up in the office. TIME SPENT: More than 60 minutes. MTDD
--- NOTE | 2021-11-17 09:31 | PCM.PROG ---
Attending Provider: ATTENDING PROVIDER: Dr. BALTA ASENCIO This patient is seen with Lea Jackson, Nurse Practitioner. DATE OF SERVICE: 11/17/21 SUBJECTIVE: This 81 year old /WHITE M was hospitalized 11/15/21. He has not had any diarrhea since yesterday. He states he is feeling much better. GI panel was positive for Astrovirus. Urine culture showed no growth. He is afebrile. Up and about this morning and insistent on being discharged. REVIEW OF SYSTEMS: CONSTITUTIONAL: No night sweats. Fatigue. No fever or chills. HEENT: Eyes: No visual changes. No eye pain. No eye discharge. ENT: No runny nose. No epistaxis. No sinus pain. No odynophagia. No congestion. RESPIRATORY: No cough, no congestion. No hemoptysis. No shortness of breath. CARDIOVASCULAR: No angina symptoms. No CHF symptoms. No atypical chest pain for CAD. No palpitations. No orthopnea.. GASTROINTESTINAL: No abdominal pain. No nausea or vomiting. No diarrhea or constipation. No hematemesis. No hematochezia. GENITOURINARY: No urgency. No frequency. No dysuria. No hematuria. No obstructive symptoms. No discharge. No pain. No significant abnormal bleeding. MUSCULOSKELETAL: No musculoskeletal pain; no joint swelling. NEUROLOGICAL: Awake, alert, oriented to time, place and person. No headache. No neck pain. No syncope. No seizures. No dizziness. PSYCHIATRIC: Not anxious. No depression. No suicidal thoughts. No homicidal thoughts. SKIN: No rash. No lesions. No wounds. ENDOCRINE: No unexplained weight loss. No weight gain. HEMATOLOGIC/LYMPHATIC: No anemia. No purpura. No petechiae. No prolonged or excessive bleeding. No palpable lymph nodes. PHYSICAL EXAMINATION: GENERAL: The patient is awake, alert and oriented, sitting in bed in no distress. VITAL SIGNS: Temperature 97.8 F, Pulse 65, Respiratory Rate 18, BP 123/66, Pulse Ox 97% HEENT: Head normocephalic, atraumatic. Eyes: Extraocular muscles are intact. Pupils are equal, round and reactive to light and accommodation. Ears: No lesions. Nose appeared normal. Throat: No exudate or erythema. NECK: Supple. No JVD, no carotid bruit. No lymphadenopathy or thyromegaly. LUNGS: Diminished breath sounds. Clear to auscultation. Percussion note normal. Chest symmetrical. HEART: S1, S2, no S3. No murmurs. No cyanosis or clubbing. No ascites. Pulses: Dorsalis pedis and posterior tibial pulses +1 to +2 both sides. ABDOMEN: Soft. Non-tender. Bowel sounds active. No CVA tenderness. No mass felt. EXTREMITIES: No edema. Full range of motion of all extremities, equal. NEUROLOGIC: No focal deficit. Cranial nerves II through XII are grossly intact. No headache. No double vision. SKIN: Not dry. Intact. Turgor-normal. LYMPHATIC: No palpable lymph nodes/no lymphedema. MUSCULOSKELETAL: Normal joints with no swelling. Muscle tone is normal. LAB REVIEW: 11/17/21 04:56 11/17/21 04:56 11/17/21 04:56: Sodium 133.4 L, Potassium 3.57, Chloride 101.3, Carbon Dioxide 24.2, Anion Gap 11.47, BUN 7.5 L, Creatinine 0.67, Estimated GFR (MDRD) 114.00, BUN/Creatinine Ratio 11.19, Glucose 92.8, Calcium 9.06, Total Bilirubin 0.93, AST 30.1, ALT 12.9, Alkaline Phosphatase 85.8, Total Protein 7.38, Albumin 4.43, Globulin 2.95, Albumin/Globulin Ratio 1.50 11/17/21 04:56: WBC 4.55, RBC 4.36 L, Hgb 14.3, Hct 38.8 L, MCV 89.0, MCH 32.8 H , MCHC 36.9 H, RDW Coeff of [place]uki 12.1, Plt Count 123 L, Immature Gran % (Auto) 0.4, Neut % (Auto) 35.4 L, Lymph % (Auto) 51.0 H, [place] % (Auto) 8.6, Eos % (Auto) 3.7, Baso % (Auto) 0.9, Neut # (Auto) 1.6 L, Lymph # (Auto) 2.3, [place] # (Auto) 0.4, Eos # (Auto) 0.2, Baso # (Auto) 0.0, Immature Gran # (Auto) 0.0 11/16/21 09:30: Stl C. cayetanensis PCR Not detected, Stool Rotavirus (PCR) Not detected, Stool Adenovirus (PCR) Not detected, Stool Astrovirus (PCR) Detected H , Stool Campylobacter PCR Not detected, Stl C.difficile Tox PCR Not detected, St ool Cryptosporidium PCR Not detected, Stl E.coli Shiga Tox PCR Not detected, St Sh/Enteroin Ecoli PCR Not detected, Stl Enterotoxigenic E PCR Not detected, Stool EPEC (PCR) Not detected, Stl E. histolytica PCR Not detected, Stool Giardia Lamblia PCR Not detected, Stl P. shigelloides PCR Not detected, Stool Salmonella PCR Not detected, Stool Sapovirus (PCR) Not detected, St Y.enterocolitica PCR Not detected, Stool Vibrio (PCR) Not detected, Stl Vibrio cholerae PCR Not detected, Stl Enteroaggr Ecoli PCR Not detected, Stl Norovirus GI/GII PCR Not detected 11/16/21 09:05: Adenovirus (PCR) Not detected, B. pertussis DNA (PCR) Not detected, B.parapertussis DNA PCR Not detected, C. pneumoniae DNA (PCR) Not detected, Coronavirus OC43 (PCR) Not detected, Coronavirus HKU1 (PCR) Not detected, Coronavirus 229E (PCR) Not detected, Coronavirus NL63 (PCR) Not detected, Human Metapneumovir PCR Not detected, Influenza Type A (PCR) Not detected, Influenza B (RT-PCR) Not detected, M. pneumoniae (PCR) Not detected, Parainfluenza 1 (PCR) Not detected, Parainfluenza 2 (PCR) Not detected, Parainfluenza 3 (PCR) Not detected, Parainfluenza 4 (PCR) Not detected, RSV (PCR) Not detected, Entero/Rhino (PCR) Not detected, SARS-CoV-2 (PCR) Not detected ASSESSMENT: Please see below. 1. Acute viral gastirits 2. Positive Astrovirus 3. Hyponatremia, improved 4. Dehydration 5. Generalized weakness PLAN: 1. Will discharge home 2. Recollect U/A 3. Discharge home on Lomotil 2.5mg TID PRN 4. 2D echo before discharge due to hypertension. Plan and coordination of the patient's care discussed in the presence of Poker Prop Player and nurse. SCRIBED BY: Jake RIVAS scribed while in presence of service performed by Dr. Asencio/Lea Jackson APRN on 11/17/21 ([id number])
--- NOTE | 2021-11-18 13:12 | ECHO2D ---
Date of Exam: 11/17/2021 Ordering Physician: DR. BALTA ASENCIO Room #: [id number] Reason for Echo: HTN, LVH, WEAKNESS M-Mode Normal Adult Results LV Dimensions Normal Adult Results AoV Opening excursions >1.6 >1.6 LVEDD-base- 3.5-5.8 4.5 Ao root dimensions 2.0-3.7 3.4 LVESD-base- 3.1-4.6 L. Atrium dimensions 1.9-3.8 4.1 Post. Wall thickness 0.8-1.1 1.1 IV septum (thickness) 0.7-1.2 1.2 Post. Wall excursion 0.72-1.3 NORMAL Septal motion NORMAL Systolic motion R. Ventricular cavity 1.5-2.0 3.5 LVEF 60% 55% Paradoxical septal wall motion NORMAL 2-D : 2-D M Mode Echocardiogram was performed using apical four chamber and left parasternal long and short axis views. Mitral, tricuspid and aortic valves appear to be normal. Contractility of the left ventricle seems to be normal, so is the cavity size. ENLARGED LEFT ATRIAL CAVITY SIZE. Aortic root appears to be normal. There is no pericardial effusion. There is no thrombus noted in the left ventricle or left atrial cavity. RIGHT VENTRICLE CAVITY ENLARGEMENT. M-MODE: MV: NORMAL AV: NORMAL TV: NORMAL PV: CHAMBER SIZE: ENLARGED LEFT ATRIAL AND RIGHT VENTRICLE CAVITIES WALL MOTION: NORMAL PERICARDIUM: NORMAL INTERPRETATION: 1. 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 ENLARGED RIGHT VENTRICLE CAVITY 3. NORMAL VALVES 4. NORMAL LEFT VENTRICLE CONTRACTILITY MTDD
--- NOTE | 2021-11-19 09:14 | PN ---
DATE OF SERVICE: 11/16/21 SUBJECTIVE: The patient was seen and examined with Nurse Practitioner. The patient's condition is stable. No neurological deficit. Colitis has resolved. No symptoms of urinary tract infection. Telemetry shows no arrhythmias. Condition is stable. TIME SPENT: More than 30 minutes. Plan and coordination of the patient's care discussed in the presence of nurse. LINH
--- NOTE | 2021-11-19 09:59 | PN ---
DATE OF SERVICE: 11/17/21 SUBJECTIVE: The patient was seen and examined with the Nurse Practitioner. The patient's condition has improved. His echo showed LV cavity enlargement, hypokinetic septal wall. Echo findings practically unchanged from before. Ejection fraction 50-55% with mildly enlarged LA cavity. His PFT surprisingly better than what it was 2-3 years ago with 81-83% FVC FEV1 respectively. The patient was seen and examined with the Nurse Practitioner and the plan for the discharge was made. TIME SPENT: More than 30 minutes. Plan and coordination of the patient's care discussed in the presence of nurse. LINH
--- NOTE | 2021-11-19 09:59 | PN ---
11/15/21: Level 5 11/16/21: Intermediate 11/17/21: D as in discharge MTDD
== END 2021-11-17 13:32 | disposition home or self-care (01) | DRG 556 ==
LOC: ED 09:28 → MEDSURG A 12:29
PROVIDERS: ADMIT Internal Medicine; ATTEND Internal Medicine
DX: K29.70 Gastritis, unspecified, without bleeding; Z72.0 Tobacco use; E86.0 Dehydration; E87.6 Hypokalemia; A08.32 Astrovirus enteritis; N39.0 Urinary tract infection, site not specified; J44.9 Chronic obstructive pulmonary disease, unspecified; R00.1 Bradycardia, unspecified; I10 Essential (primary) hypertension; R06.02 Shortness of breath; E87.1 Hypo-osmolality and hyponatremia; M62.81 Muscle weakness (generalized)

== ENCOUNTER 2024-01-01 03:08 | Observation (INO) ==
--- NOTE | 2024-01-01 03:15 | ED.PDOC ---
General ED Provider: Dr. CHARAN CANTU MD Chief Complaint: Weakness Stated Complaint: Patient history of COPD hypertension complains of constipation past few days states he used the bathroom and after walking back to his bedroom he apparently passed out awake and on his hands and knees of his head against the wall. Patient is unsure if he struck his head. Patient complains of a slight nonproductive cough and lower abdominal pain. Denies nausea, vomiting, urinary symptoms, blurred vision, headache, neck or back pain. Time Seen by Provider: 01/01/24 03:15 Mode of Arrival: Ambulance Information Source: Patient and EMT Exam Limitations: Clinical condition Primary Care Provider: BALTA YAP MD Nursing and Triage Documentation Reviewed and Agree: Yes What is Opioid Naive?: *Opioid Naive implies the patient is not already taking opioids or not chronically receiving opioids on a daily basis. *PRN dosing is not "usually" associated with tolerance. *Patients are at higher risk of over-sedation and aspiration. What is Opioid Tolerant?: *Opioid Tolerance implies less than the expected response to an opioid. *Acquired tolerance is defined by the patient taking 60mg of oral morphine daily (or equianalgesic dose of another opioid) for 1 week or more. *Often associated with chronic pain. *May take more than usual dose to achieve desired pain control. Review of Systems Review Of Systems Constitutional: Reports Weakness Eyes: Reports No symptoms Ears, Nose, Mouth, Throat: Reports No symptoms Respiratory: Reports No symptoms Cardiac: Reports No symptoms GI: Reports Abdominal pain : Reports No symptoms Skin: Reports No symptoms Neurological: Reports Other (Syncopal episode) Endocrine: Reports No symptoms Hematologic/Lymphatic: Reports No symptoms and Anemia [facility] Medical History Encounter for Medicare annual wellness exam Z00.00 - Encounter for general adult medical examination without abnormal findings (ICD-10) Enlarged prostate N40.0 - Benign prostatic hyperplasia without lower urinary tract symptoms (ICD-10) Acute urinary tract infection N39.0 - Urinary tract infection, site not specified (ICD-10) Hypokalemia E87.6 - Hypokalemia (ICD-10) Acute hyponatremia E87.1 - Hypo-osmolality and hyponatremia (ICD-10) Dehydration E86.0 - DEHYDRATION (ICD-10) Near syncope R55 - SYNCOPE AND COLLAPSE (ICD-10) Family History Other No known health problems Social History Smoking and tobacco status: Current every day smoker Tobacco type: cigarettes Smoking packs per day: 1 Smoking cigarettes per day: 20.0 Years smoked: 65 Smoking pack-years: 65.00 Tobacco: How many years used: 65 Alcohol intake: current Substance use type: does not use Special yordy needs: No Agree to transfusion: Yes Adopted: No Caregiver/support person: No Foster care: No Household members: spouse Housing: house Marital status: M Lives independently: Yes Number of children: 5 service: Yes Current occupational status: retired History of recent travel: No Do you think of yourself as: straight/heterosexual Current gender identity: male Seatbelt use: always Drives intoxicated or rides with intoxicated racing car driver: No Water heater temperature set < 120 degrees: Yes Working smoke detector in home: Yes Fire extinguisher in home: Yes Carbon monoxide detector in home: Yes Surgical History 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 (ICD-10) History of neck surgery Z98.890 - Other specified postprocedural states (ICD-10) Previous back surgery Z98.890 - Other specified postprocedural states (ICD-10) Physical Exam Physical Exam Appearance: Reports Ill-appearing, Thin and Cachectic Ill-appearing: Mild Pain Distress: None Eyes: Reports ANGELINA, EOMI and Conjunctiva clear ENT: Reports Ears normal, Nose normal and Oropharynx normal Neck: Supple Respiratory: Reports Airway patent, Breath sounds clear, Breath sounds equal and Breath sounds diminished Cardiovascular: Reports RRR, Pulses normal, No rub, No murmur and Bradycardia GI/: Reports Soft, No masses, Bowel sounds normal and Tender (There is moderate infraumbilical and left lower quadrant tenderness noted. Rectal examination is normal sphincter tone there is no firm stool in the rectal vault.) Musculoskeletal: Reports Normal strength, ROM intact, No edema and No calf tenderness Skin: Reports Warm, Dry and Normal color Neurological: Reports Sensation intact and Motor intact Psychiatric: Reports Affect appropriate and Mood appropriate Physician Notification Case Discussed Physician Notified: Dr. Bradly Yap Time of Notification: 05:10 Comments: After discussion all laboratory data and CT scans recommendations were observation and referral to the hospitalist for admission Physician Notified: Consult hospitalist Reyes Ledbetter Time of Notification: 05:15 Comments: Discussion all laboratory data and CT scan findings recommendations for observation with telemetry Critical Care Note Critical Care Note Total Critical Care Time (mins): 20 Course Course 01/01/24 03:40 01/01/24 03:40 Orders, Labs, Meds: Lab Review 01/01/24 01/01/24 01/01/24 03:25 03:40 04:44 WBC 5.33 RBC 3.84 L Hgb 13.0 L Hct 35.9 L MCV 93.5 MCH 33.9 H MCHC 36.2 H RDW Coeff of Yuki 12.3 Plt Count 124 L Immature Gran % (Auto) 0.8 Neut % (Auto) 60.8 Lymph % (Auto) 19.7 [place] % (Auto) 14.4 H Eos % (Auto) 3.4 Baso % (Auto) 0.9 Neut # (Auto) 3.2 Lymph # (Auto) 1.1 [place] # (Auto) 0.8 Eos # (Auto) 0.2 Baso # (Auto) 0.1 Immature Gran # (Auto) 0.0 PT 12.0 H INR 1.16 Sodium 122.5 L Potassium 2.93 L Chloride 92.7 L Carbon Dioxide 21.2 L Anion Gap 11.53 BUN 15.1 Creatinine 0.72 Estimated GFR (MDRD) 104.00 BUN/Creatinine Ratio 20.97 Glucose 114.4 H Calcium 8.88 Total Bilirubin 1.02 AST 29.7 ALT 14.2 Alkaline Phosphatase 87.6 Troponin I < 0.012 NT-Pro-B Natriuret Pep 439 H Total Protein 6.74 Albumin 3.86 Globulin 2.88 Albumin/Globulin Ratio 1.34 Lipase 54.0 Urine Color Dark Urine Clarity Slightly Urine pH 6.0 Ur Specific [place] 1.015 Urine Protein Negative Urine Glucose (UA) Negative Urine Ketones Negative Urine Blood 2+ H Urine Nitrite Positive H Urine Bilirubin Negative Urine Urobilinogen 1.0 H Ur Leukocyte Esterase 3+ H Urine Microscopic RBC 20-30 Urine Microscopic WBC 30-50 Ur Squamous Epith Cells Not present Urine Bacteria 1+ Stl Occult Blood (IFOB) Negative Stool Occult Blood #2 No specimen received Stool Occult Blood #3 No specimen received Influ A Molecular Assay Negative by naat Influ B Molecular Assay Negative by naat RSV Antigen Negative by naat SARS CoV-2 RNA Rapid DEEP Negative Orders Category Date Time Status EKG-(ED ONLY) Stat CARDIO 01/01/24 03:15 Completed NPO REMINDER: IMAGING ONCE CARE 01/01/24 03:30 Completed Tour Leader [ED DIRECTOR [facility]] .ONCE EMERGENCY 01/01/24 03:15 Active BLOOD CULTURE (ED ONLY) Stat LAB 01/01/24 Ordered CBC W/ AUTO DIFF Stat LAB 01/01/24 03:40 Completed CMP [COMPREHENSIVE METABOLIC PANEL] Stat LAB 01/01/24 03:40 Completed COVID [SARS COV-2 RNA RAPID DEEP] Stat LAB 01/01/24 03:25 Completed FLU A & B MOLECULAR [FLU A/B MOLECULAR] Stat LAB 01/01/24 03:25 Completed LIPASE Stat LAB 01/01/24 03:40 Completed OCCULT BLOOD, STOOL Stat LAB 01/01/24 03:25 Completed PROBNP ED [NT-PROBNP(ED)] Stat LAB 01/01/24 03:40 Completed PT WITH INR Stat LAB 01/01/24 03:40 Completed RSV Stat LAB 01/01/24 03:25 Completed TROPONIN I Stat LAB 01/01/24 03:40 Completed URINALYSIS C & S IF INDICATED Stat LAB 01/01/24 04:44 Completed URINE CULTURE Stat LAB 01/01/24 04:44 Received Levofloxacin/D5w [Levaquin 500 mg/100 ml D5w] Meds 01/01/24 04:57 Active 500 mg in 100 ml IV ONCE Sodium Chloride 0.9% [Sodium Chloride] 1,000 ml Meds 01/01/24 03:15 Active IV 100 mls/hr CHEST, 1V AP ONLY Stat RADS 01/01/24 03:[address] ABDOMEN/PELVIS WO CONTRAST Stat RADS 01/01/24 03:[address] HEAD W/O CONTRAST Stat RADS 01/01/24 03:17 Completed Medications Generic Name Dose Route Start Last Admin Trade Name Freq PRN Reason Stop Dose Admin Sodium Chloride 1,000 mls @ 100 mls/hr 01/01/24 03:15 01/01/24 03:43 Sodium Chloride IV 01/01/24 13:14 100 mls/hr .Q10H ONE Administration Levofloxacin/Dextrose 500 mg in 100 mls @ 100 mls/hr 01/01/24 04:57 Levaquin 500 Mg/100 Ml D5w IV 01/01/24 05:56 ONCE ONE Vital Signs: Temp Pulse Resp BP Pulse Ox 01/01/24 03:09 96.9 F L 50 L 18 141/62 H 98 Discharge Plan Discharge Patient Disposition: PLACED OBSERVATION Discharge Problem: Acute colitis, Chronic hyponatremia Urinary tract infection Qualifiers: Urinary tract infection type: acute cystitis Hematuria presence: without hematuria Qualified Code(s): N30.00 - Acute cystitis without hematuria Syncope Qualifiers: Syncope type: unspecified Qualified Code(s): R55 - Syncope and collapse Prescriptions: No Action losartan 50 mg tablet See Rx Instructions .ROUTE .COMPLEX Qty: 90 1RF Dose Instruction: TAKE 1 TABLET BY MOUTH 1 TIME Patient Comments: PT STATES TAKES LOSARATN 50MG DAILY Rx Instructions: TAKE 1 TABLET BY MOUTH 1 TIME omeprazole 20 mg capsule,delayed release(DR/EC) 20 mg PO DAILY Qty: 90 1RF atenolol-chlorthalidone 50-25 mg tablet 1 tab PO DAILY Qty: 90 1RF dutasteride [Avodart] 0.5 mg capsule 0.5 mg PO QDAY Qty: 30 4RF tamsulosin 0.4 mg capsule See Rx Instructions .ROUTE .COMPLEX Qty: 90 1RF Dose Instruction: TAKE 1 CAPSULE BY MOUTH EVERY DAY Rx Instructions: TAKE 1 CAPSULE BY MOUTH EVERY DAY aspirin 325 mg tablet 325 mg PO QDAY Breztri Aerosphere 160-9-4.8 mcg/actuation HFA aerosol inhaler 2 inh inhalation QAM Qty: 10.7 2RF Did you review [place] [employer] for ALL controlled substances?: Not Applicable ED Provider: CHARAN CANTU Condition: Stable Physician Progress Note: History obtained from the patient and EMS who states patient with a history of hypertension and COPD after going to the bathroom due to constipation all walking back to his room he apparently had a syncopal episode awakened on his hands and knees move his head against the wall. Patient is unsure against head injury denies headache neck pain back pain but complains of lower abdominal pain. Patient denies blurred vision dyspnea diaphoresis palpitations urinary symptoms. Patient is unsure if he had loss of consciousness. Patient given IV fluids normal saline 1 L at 100 mL/hour EKG interpretation by myself is consistent with sinus bradycardia rate of 48 there is a right bundle branch block noted. There is no prolongation of [place] QT interval. There is no ectopy noted. Dr. Guillermina Yap the hospitalist morning Laboratory data CBC normal limits CMP for normal limits of 4 sodium 122 potassium 2.9 chloride 92 bicarb is 21 GFR 104, lipase 54 troponin less than 0.012 proBNP is 439 Portable chest x-ray interpretation radiologist shows no acute cardiopulmonary process. The head CT scan without intravenous contrast interpretation by the radiologist shows moderate brain loss. No acute infarct, hemorrhage or mass effect. The abdominal pelvic CT scan without intravenous contrast rotation by the radiologist consistent with liver scattered calcified granulomas in the liver gallbladder bile ducts no biliary dilatation spleen pancreas unremarkable kidneys and ureters punctate stone left mid ureter no hydronephrosis stones at the left lower pole measuring up to 3 mm the bowel mesentery peritoneum there is thickening of the wall of the distal transverse and descending colon, normal appendix there is no free air or ascites. Concerning for colitis After 2 sets of blood cultures patient ministered IV Levaquin 500 mg IV piggyback Differential diagnosis: 1) syncope 2) hyponatremia 3) acute colitis 4) urinary tract infection Discussed with Dr. Bradly Yap at 0510 for referral to hospitalist for observation Discussed with hospitalist Reyes Ledbetter at 0 515 for observation []
[2024-01-01] MEDS: SODIUM CHLORIDE 1,000 ML IV ONE (03:43)
[2024-01-01 03:51] LABS: BASOPHILS # (AUTO) 0.1 K/uL (0-0.2); BASOPHILS % (AUTO) 0.9 % (0.0-3.0); EOSINOPHILS # (AUTO) 0.2 K/ul (0.0-0.7); EOSINOPHILS % (AUTO) 3.4 % (0.0-7.0); HEMATOCRIT 35.9 % (42.0-52.0); IMMATURE GRANULOCYTE % (AUTO) 0.8 % (0.0-5.0); LYMPHOCYTES # (AUTO) 1.1 K/uL (0.60-3.4); LYMPHOCYTES % (AUTO) 19.7 (10.0-50.0); MEAN CORPUSCULAR HEMOGLOBIN 33.9 pg (27.0-31.0); MEAN CORPUSCULAR HGB CONC 36.2 (31.8-35.4); MEAN CORPUSCULAR VOLUME 93.5 fl (80.0-94.0); MONOCYTES # (AUTO) 0.8 K/uL (0.4-2.0); MONOCYTES % (AUTO) 14.4 (0-10); NEUTROPHILS # (AUTO) 3.2 K/ul (2.0-6.9); NEUTROPHILS % (AUTO) 60.8 % (42.2-75.2); PLATELET COUNT 124 10^3/uL (140-440); RDW COEFFICIENT OF VARIATION 12.3 % (11.6-14.8); RED BLOOD COUNT 3.84 10^6/ul (4.70-6.10); WHITE BLOOD COUNT 5.33 K/ul (4.2-10.2)
[2024-01-01 04:00] LABS: ALANINE AMINOTRANSFERASE 14.2 U/L (0-50); ALBUMIN 3.86 g/dL (3.5-5.0); ALKALINE PHOSPHATASE 87.6 U/L (56-119); ASPARTATE AMINO TRANSFERASE 29.7 U/L (17-59); BILIRUBIN,TOTAL 1.02 mg/dL (0.2-1.3); BLOOD UREA NITROGEN 15.1 mg/dL (9-20); CALCIUM 8.88 mg/dL (8.4-10.2); CARBON DIOXIDE 21.2 mmol/L (22-30.0); CHLORIDE 92.7 mmol/L (98-107); CREATININE 0.72 mg/dL (0.60-1.10); GLUCOSE 114.4 mg/dL (74-106); POTASSIUM 2.93 mmol/L (3.5-5.1); SODIUM 122.5 mmol/L (134.5-145); TOTAL PROTEIN 6.74 g/dL (6.3-8.2)
[2024-01-01 04:07] LABS: OCCULT BLOOD SAMPLE 1 NEGATIVE (NEGATIVE)
[2024-01-01 04:09] LABS: RSV MOLECULAR NEGATIVE BY NAAT (NEGATIVE); SARS COV-2 RNA RAPID NAAT NEGATIVE (NEGATIVE)
[2024-01-01 04:13] LABS: TROPONIN I < 0.012 ng/ml (0.0000-0.120)
[2024-01-01 04:23] LABS: MOLECULAR FLU A NEGATIVE BY NAAT (NEGATIVE); MOLECULAR FLU B NEGATIVE BY NAAT (NEGATIVE)
[2024-01-01 04:24] LABS: OCCULT BLOOD SAMPLE 2 NO SPECIMEN RECEIVED (NEGATIVE); OCCULT BLOOD SAMPLE 3 NO SPECIMEN RECEIVED (NEGATIVE)
--- NOTE | 2024-01-01 04:34 | CT ---
EXAM: CT HEAD WITHOUT CONTRAST TECHNIQUE: Noncontrast CT of the head with multiple reformats. HISTORY: Generalized weakness. COMPARISON: None. FINDINGS: No evidence of acute infarction, hemorrhage, or mass. Moderate brain volume loss. Mild chronic microvascular changes of the white matter. Atherosclerotic calcification of the carotid siphons. No brain herniation. Patent basilar cisterns. Partially empty sella. Ventricles are proportional to brain volume. No acute osseous abnormality. Fracture repair hardware along the right orbital rim. Bilateral lens replacements of the globes. IMPRESSION: No acute intracranial abnormality. Chronic findings as above. All CT scans are performed using dose optimization techniques as appropriate to the performed exam an d include at least one of the following: Automated exposure control, adjustment of the mA and/or kV according t o size, and the use of iterative reconstruction technique.
--- NOTE | 2024-01-01 04:38 | DI ---
EXAM: AP CHEST. HISTORY: Cough. FINDINGS: There are multiple sternotomy wires. The cardiac silhouette and pulmonary vasculature are within normal limits. The costophrenic angles are clear. There are calcified granulomas. There is trace left basilar scarring. No consolidation. There is skin fold artifact projecting over the mariana thoraces. Impression: No acute cardiopulmonary disease.
--- NOTE | 2024-01-01 04:41 | CT ---
EXAM: CT OF THE ABDOMEN AND PELVIS WITHOUT CONTRAST. TECHNIQUE: CT of the abdomen and pelvis was performed without the use of contrast. Multiplanar refo rmats were performed. HISTORY: Lower abdominal pain. COMPARISON: CT abdomen pelvis 11/16/2021. FINDINGS: Evaluation of solid organs and blood vessels is suboptimal without the benefit of contrast. Imaged lower thorax: Calcified granulomas at the right lung base. Post sternotomy. Liver: Scattered calcified granulomas in the liver. Gallbladder/Bile Ducts: No biliary dilation. Gallbladder is unremarkable. Spleen: Multiple calcified granulomas in the spleen. Pancreas: Moderate atrophy. Adrenals: Unremarkable. Kidneys/Ureters: Punctate stone in the left mid ureter. No hydronephrosis. Stones at the left lower pole measuring up to 3 mm. Bowel/mesentery/peritoneum: Thickening of the wall of the distal transverse and descending colon. Nor mal appendix. No free air or ascites. Retroperitoneum/vessels: No aortic aneurysm. Multifocal atherosclerotic calcifications. Pelvis: Thickening and trabeculation of the bladder wall with multiple small diverticula. Dependent stone in the bladder measures 6 mm. Markedly enlarged prostate. Small fat containing left inguinal h ernia. Bones/body wall: Degenerative change of the spine and hips. No acute osseous finding. IMPRESSION: Thickening of the wall of the transverse and descending colon concerning for colitis. Left nephrolithiasis. Punctate stone in the left mid ureter. No hydronephrosis. Chronic bladder outlet obstruction with diffuse thickening and trabeculation of the bladder wall, mul tiple bladder diverticula, and 6 mm bladder stone. Markedly enlarged prostate. Calcified atherosclerosis. All CT scans are performed using dose optimization techniques as appropriate to the performed exam an d include at least one of the following: Automated exposure control, adjustment of the mA and/or kV according t o size, and the use of iterative reconstruction technique.
[2024-01-01 04:53] LABS: BILIRUBIN,URINE Negative (NEGATIVE); CLARITY,URINE Slightly (CLEAR); COLOR,URINE Dark (YELLOW); GLUCOSE, URINE (UA) Negative (NEGATIVE); KETONES,URINE Negative (NEGATIVE); LEUKOCYTE ESTERASE ,URINE 3+ (NEGATIVE); NITRITE,URINE Positive (NEGATIVE); PROTEIN,URINE Negative (NEGATIVE); URINE, BLOOD 2+ (NEGATIVE)
[2024-01-01 04:59] LABS: SQUAMOUS EPITHELIAL CELL,UR NOT PRESENT (0-5)
[2024-01-01 05:00] LABS: BACTERIA,URINE 1+ (NOT PRESENT); URINE RBC, MICROSCOPIC 20-30 (0-2); URINE WBC, MICROSCOPIC 30-50 (0-2)
[2024-01-01] MEDS: LEVAQUIN 500 MG/100 ML D5W 500 MG/100 ML BAG IV ONE (05:10)
[2024-01-01 06:28] VITALS: BMI 19.3
[2024-01-01] MEDS ORDERED: ZOFRAN 4 MG/2 ML IVP PRN (07:21)
[2024-01-01] MEDS ORDERED: TYLENOL PO PRN (07:21)
[2024-01-01] MEDS: K-DUR PO ONE (07:48)
[2024-01-01] MEDS: ASPIRIN EC PO SCH (07:48)
[2024-01-01 08:24] LABS: BLOOD UREA NITROGEN 12.5 mg/dL (9-20); CALCIUM 8.88 mg/dL (8.4-10.2); CARBON DIOXIDE 22.9 mmol/L (22-30.0); CREATININE 0.6 mg/dL (0.60-1.10); GLUCOSE 107.1 mg/dL (74-106); POTASSIUM 3.04 mmol/L (3.5-5.1); SODIUM 123.6 mmol/L (134.5-145)
[2024-01-01] MEDS: ROCEPHIN 1 GM/50 ML D5W 1 GM/50 ML BAG IV SCH (08:45)
[2024-01-01] MEDS: PRILOSEC PO SCH (08:55)
[2024-01-01] MEDS: AVODART PO SCH (08:55)
[2024-01-01] MEDS: SODIUM CHLORIDE 3% 500 ML IV SCH (08:55)
[2024-01-01] MEDS: TENORMIN PO SCH (08:56)
[2024-01-01] MEDS: FLOMAX PO SCH (08:56)
[2024-01-01] MEDS: COZAAR PO SCH (08:56)
--- NOTE | 2024-01-01 09:36 | PCM ---
Date of Service Date Seen by Provider: 01/01/24 Time Seen by Provider: 09:15 Admit Day/Time Admission Date: 01/01/24 Admission Time: 05:30 Reason for Admission Chief Complaint: UTI, ACUTE COLITIS, SYNCOPE, HYPONATREONIA Hospital Provider Hospital Provider: DURGA JUAN, [facility] [place] Primary Care Physician: BALTA YAP MD History of Present Illness History of Present Illness: 83 yo male presented to the ER following a syncopal episode. States he got up to use the bathroom and woke up between the wall and the sink. EMS called and brought patient to ER. Denies any chest pain, sob, palpitations, fever. Has had loose stools for the past couple days. Denies blood or bile present. Ct head negative. Ct abd pelvis showed colitis. Also found to be hyponatremic at 122 and hypokalemic at 2.9. UTI present on UA. Denies any vomiting at home. Does report mild abdominal pain in lower quadrants. Admitted to med/surg observation. Case Discussed With Case Discussed With: Patient's case was discussed with the ER Physicians, Dr. He. 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 (ICD-10) History of neck surgery Z98.890 - Other specified postprocedural states (ICD-10) Previous back surgery Z98.890 - Other specified postprocedural states (ICD-10) Family History Other No known health problems Social History Smoking and tobacco status: Current every day smoker Tobacco type: cigarettes Smoking packs per day: 1 Smoking cigarettes per day: 20.0 Years smoked: 65 Smoking pack-years: 65.00 Tobacco: How many years used: 65 Alcohol intake: current Substance use type: does not use Special yordy needs: No Agree to transfusion: Yes Adopted: No Caregiver/support person: No Foster care: No Household members: spouse Housing: house Marital status: M Lives independently: Yes Number of children: 5 service: Yes Current occupational status: retired History of recent travel: No Do you think of yourself as: straight/heterosexual Current gender identity: male Seatbelt use: always Drives intoxicated or rides with intoxicated assembly line driver: No Water heater temperature set < 120 degrees: Yes Working smoke detector in home: Yes Fire extinguisher in home: Yes Carbon monoxide detector in home: Yes Allergies Allergies Allergy/AdvReac Type Severity Reaction Status Date / Time Iodinated Contrast Media AdvReac Severe Anaphylaxis Verified 01/01/24 03:20 [Iodinated Contrast Media - IV Dye] iodine AdvReac Unknown Verified 01/01/24 03:20 Current Medications Home Medications aspirin 325 mg tablet 325 mg PO QDAY 11/04/22 [History Confirmed 01/01/24 Last Taken Unknown] losartan 50 mg tablet See Rx Instructions .Route .COMPLEX #90 tabs 06/06/23 [Rx Confirmed 01/01/24 Last Taken Unknown] budesonide 160 mcg-glycopyr 9 mcg-formot 4.8 mcg/actuation HFA inhaler (Breztri Aerosphere) 2 inh inhalation QAM #10.7 grams 07/11/23 [Rx Confirmed 01/01/24 Last Taken Unknown] atenolol 50 mg-chlorthalidone 25 mg tablet 1 tab PO DAILY #90 tabs 10/04/23 [Rx Confirmed 01/01/24 Last Taken Unknown] omeprazole 20 mg capsule,delayed release 20 mg PO DAILY #90 caps 10/04/23 [Rx Confirmed 01/01/24 Last Taken Unknown] dutasteride 0.5 mg capsule (Avodart) 0.5 mg PO QDAY #30 caps 10/12/23 [Rx Confirmed 01/01/24 Last Taken Unknown] tamsulosin 0.4 mg capsule See Rx Instructions .Route .COMPLEX #90 caps 12/19/23 [Rx Confirmed 01/01/24 Last Taken Unknown] Home Acetaminophen (Acetaminophen 325 Mg Tablet) 650 mg PO Q4H PRN PRN Reason: Mild Pain Aspirin (Aspirin 325 Mg Tablet.) 325 mg PO DAILYWM2 [facility] Last Admin: 01/01/24 07:48 Dose: 325 mg Atenolol (Atenolol 50 Mg Tablet) 50 mg PO DAILY [facility] Last Admin: 01/01/24 08:56 Dose: 50 mg Dutasteride (Dutasteride 0.5 Mg Capsule) 0.5 mg PO DAILY [facility] Last Admin: 01/01/24 08:55 Dose: 0.5 mg CEFTRIAXONE/D5W 1 GM PREMIX (Rocephin 1 Gm/50 Ml D5w) 1 gm in 50 mls @ 100 mls/hr IV DAILY [facility] Stop: 01/04/24 08:59 Last Admin: 01/01/24 08:45 Dose: 100 mls/hr Metronidazole (Flagyl 500 Mg/100 Ml) 500 mg in 100 mls @ 100 mls/hr IV Q8HR [facility] Stop: 01/04/24 12:59 Sodium Chloride (Sodium Chloride 3%) 500 mls @ 30 mls/hr IV .[id number] [facility] Last Admin: 01/01/24 08:55 Dose: 30 mls/hr Losartan Potassium (Losartan Potassium 25 Mg Tablet) 50 mg PO DAILY [facility] Last Admin: 01/01/24 08:56 Dose: 50 mg Omeprazole (Omeprazole 20 Mg Capsule.) 20 mg PO QDAC2 [facility] Last Admin: 01/01/24 08:55 Dose: 20 mg Ondansetron HCl (Ondansetron Hcl/Pf 4 Mg/2 Ml Sdv) 4 mg IVP Q6H PRN PRN Reason: Nausea / Vomiting Tamsulosin HCl (Tamsulosin Hcl 0.4 Mg Cap.Er.24h) 0.4 mg PO DAILY [facility] Last Admin: 01/01/24 08:56 Dose: 0.4 mg Discontinued Medications Sodium Chloride (Sodium Chloride) 1,000 mls @ 100 mls/hr IV .Q10H ONE Stop: 01/01/24 13:14 Last Infusion: 01/01/24 09:17 Dose: Infused Levofloxacin/Dextrose (Levaquin 500 Mg/100 Ml D5w) 500 mg in 100 mls @ 100 mls/hr IV ONCE ONE Stop: 01/01/24 05:56 Last Admin: 01/01/24 05:10 Dose: 100 mls/hr Potassium Chloride (Potassium Chloride 20 Meq/100 Ml Premix) 20 meq in 100 mls @ 50 mls/hr IV ONCE ONE Stop: 01/01/24 09:17 Last Admin: 01/01/24 09:41 Dose: 50 mls/hr Potassium Chloride (Potassium Chloride 20 Meq Tab) 40 meq PO ONCE ONE Stop: 01/01/24 07:19 Last Admin: 01/01/24 07:48 Dose: 40 meq Opioid Naive vs. Tolerant Does Patient Take Opioids?: No Is Patient Opioid Naive?: Yes What is Opioid Naive?: *Opioid Naive implies the patient is not already taking opioids or not chronically receiving opioids on a daily basis. *PRN dosing is not "usually" associated with tolerance. *Patients are at higher risk of over-sedation and aspiration. Is Patient Opioid Tolerant?: No What is Opioid Tolerant?: *Opioid Tolerance implies less than the expected response to an opioid. *Acquired tolerance is defined by the patient taking 60mg of oral morphine daily (or equianalgesic dose of another opioid) for 1 week or more. *Often associated with chronic pain. *May take more than usual dose to achieve desired pain control. Review of Systems Constitutional: Reports Fatigue and Weakness Head: Reports Normocephalic Eyes: Reports No symptoms Ears: Reports No symptoms Nose: Reports No symptoms Mouth: Reports No symptoms Throat: Reports No symptoms Cardiovascular: Reports No symptoms Respiratory: Reports No symptoms Gastrointestinal: Reports Diarrhea Genitourinary: Reports No Symptoms Musculoskeletal: Reports No symptoms Endocrine: Reports No symptoms Hematology: Reports No symptoms Immunology: Reports No symptoms Neurological: Reports Syncope Psychiatric: Reports No symptoms Physical examination Most Recent Vital Signs: Most Recent Vital Signs Temperature 97.1 F L 01/01/24 06:00 Temperature Source Oral 01/01/24 06:00 Temperature Source Infrared 01/01/24 03:09 Pulse Rate 50 L 01/01/24 06:00 Respiratory Rate 16 01/01/24 06:00 Blood Pressure 144/78 H 01/01/24 06:00 Blood Pressure Mean 100 01/01/24 06:00 Blood Pressure Right Arm 144/78 01/01/24 05:50 Blood Pressure Location Right Arm 01/01/24 06:00 Blood Pressure Position Supine 01/01/24 06:00 O2 Sat by Pulse Oximetry 99 01/01/24 06:00 Oxygen Delivery Method Room Air 01/01/24 09:00 Height 5 ft 6 in 01/01/24 05:50 Weight 120 lb 01/01/24 05:50 Telemetry Type Remote Telemetry 01/01/24 06:32 Telemetry Monitoring Started 01/01/24 06:32 Telemetry Heart Rate 50 L 01/01/24 06:32 Telemetry SPO2 99 01/01/24 06:32 EKG FL Interval 0.23 H 01/01/24 06:32 EKG QRS Interval 0.08 01/01/24 06:32 Telemetry Strip Reading SINUS JJ WITH 1ST AVB 01/01/24 06:32 Appearance: Positive No Apparent Distress and Alert and Oriented x3 Skin: Positive Warm and Good Turgor HEENT: Positive Normocephalic, Atraumatic and PERRLA Neck: Positive Supple and Midline Trachea Chest/Lungs: Positive Symmetrical With Equal Breath Sounds, Clear to A uscultation Bilaterally and Good Air Movement all 4 Lung [place] Heart: Positive RRR and Pulses Normal GI/: Positive Soft, Bowel Sounds Normal, No Distention, No Organomegaly and Tender (bilateral lower quadrants) Musculoskeletal: Positive Not Examined Extremities: Positive Intact Peripheral Pulses, Stable Joints Without Laxity and Good ROM in All Joints Neurological: Positive Sensation Intact, Motor intact, Alert, Oriented and Muscle Strength 5/5 in Upper and Lower Extremities Bilaterally Psychiatric: Positive Oriented x4, Appropriate Mood, Appropriate Affect, Intact Memory, Good Short-Term Recall, Good Long-Term Recall, Normal Judgement and Norm al Insight Labs This Visit Labs This Visit: Labs This Visit 01/01/24 01/01/24 01/01/24 03:25 03:40 04:44 WBC 5.33 RBC 3.84 L Hgb 13.0 L Hct 35.9 L MCV 93.5 MCH 33.9 H MCHC 36.2 H RDW Coeff of Yuki 12.3 Plt Count 124 L Immature Gran % (Auto) 0.8 Neut % (Auto) 60.8 Lymph % (Auto) 19.7 [place] % (Auto) 14.4 H Eos % (Auto) 3.4 Baso % (Auto) 0.9 Neut # (Auto) 3.2 Lymph # (Auto) 1.1 [place] # (Auto) 0.8 Eos # (Auto) 0.2 Baso # (Auto) 0.1 Immature Gran # (Auto) 0.0 PT 12.0 H INR 1.16 Sodium 122.5 L Potassium 2.93 L Chloride 92.7 L Carbon Dioxide 21.2 L Anion Gap 11.53 BUN 15.1 Creatinine 0.72 Estimated GFR (MDRD) 104.00 BUN/Creatinine Ratio 20.97 Glucose 114.4 H Calcium 8.88 Total Bilirubin 1.02 AST 29.7 ALT 14.2 Alkaline Phosphatase 87.6 Troponin I < 0.012 NT-Pro-B Natriuret Pep 439 H Total Protein 6.74 Albumin 3.86 Globulin 2.88 Albumin/Globulin Ratio 1.34 Lipase 54.0 Urine Color Dark Urine Clarity Slightly Urine pH 6.0 Ur Specific [place] 1.015 Urine Protein Negative Urine Glucose (UA) Negative Urine Ketones Negative Urine Blood 2+ H Urine Nitrite Positive H Urine Bilirubin Negative Urine Urobilinogen 1.0 H Ur Leukocyte Esterase 3+ H Urine Microscopic RBC 20-30 Urine Microscopic WBC 30-50 Ur Squamous Epith Cells Not present Urine Bacteria 1+ Stl Occult Blood (IFOB) Negative Stool Occult Blood #2 No specimen received Stool Occult Blood #3 No specimen received Influ A Molecular Assay Negative by naat Influ B Molecular Assay Negative by naat RSV Antigen Negative by naat SARS CoV-2 RNA Rapid DEEP Negative 01/01/24 07:56 WBC RBC Hgb Hct MCV MCH MCHC RDW Coeff of Yuki Plt Count Immature Gran % (Auto) Neut % (Auto) Lymph % (Auto) [place] % (Auto) Eos % (Auto) Baso % (Auto) Neut # (Auto) Lymph # (Auto) [place] # (Auto) Eos # (Auto) Baso # (Auto) Immature Gran # (Auto) PT INR Sodium 123.6 L Potassium 3.04 L Chloride 94.0 L Carbon Dioxide 22.9 Anion Gap 9.74 BUN 12.5 Creatinine 0.60 Estimated GFR (MDRD) 128.00 BUN/Creatinine Ratio 20.83 Glucose 107.1 H Calcium 8.88 Total Bilirubin AST ALT Alkaline Phosphatase Troponin I NT-Pro-B Natriuret Pep Total Protein Albumin Globulin Albumin/Globulin Ratio Lipase Urine Color Urine Clarity Urine pH Ur Specific [place] Urine Protein Urine Glucose (UA) Urine Ketones Urine Blood Urine Nitrite Urine Bilirubin Urine Urobilinogen Ur Leukocyte Esterase Urine Microscopic RBC Urine Microscopic WBC Ur Squamous Epith Cells Urine Bacteria Stl Occult Blood (IFOB) Stool Occult Blood #2 Stool Occult Blood #3 Influ A Molecular Assay Influ B Molecular Assay RSV Antigen SARS CoV-2 RNA Rapid DEEP Microbiology This Visit 01/01/24 04:44 Urine,Random Urine Culture - Preliminary Imaging Imaging: EXAM: CT HEAD WITHOUT CONTRAST FINDINGS: No evidence of acute infarction, hemorrhage, or mass. Moderate brain volume loss. Mild chronic microvascular changes of the white matter. Atherosclerotic calcification of the carotid siphons. No brain herniation. Patent basilar cisterns. Partially empty sella. Ventricles are proportional to brain volume. No acute osseous abnormality. Fracture repair hardware along the right orbital rim. Bilateral lens replacements of the globes. IMPRESSION: No acute intracranial abnormality. Chronic findings as above EXAM: CT OF THE ABDOMEN AND PELVIS WITHOUT CONTRAST. FINDINGS: Evaluation of solid organs and blood vessels is suboptimal without the benefit of contrast. Imaged lower thorax: Calcified granulomas at the right lung base. Post sternotomy. Liver: Scattered calcified granulomas in the liver. Gallbladder/Bile Ducts: No biliary dilation. Gallbladder is unremarkable. Spleen: Multiple calcified granulomas in the spleen. Pancreas: Moderate atrophy. Adrenals: Unremarkable. Kidneys/Ureters: Punctate stone in the left mid ureter. No hydronephrosis. Stones at the left lower pole measuring up to 3 mm. Bowel/mesentery/peritoneum: Thickening of the wall of the distal transverse and descending colon. Normal appendix. No free air or ascites. Retroperitoneum/vessels: No aortic aneurysm. Multifocal atherosclerotic calcifications. Pelvis: Thickening and trabeculation of the bladder wall with multiple small diverticula. Dependent stone in the bladder measures 6 mm. Markedly enlarged prostate. Small fat containing left inguinal hernia. Bones/body wall: Degenerative change of the spine and hips. No acute osseous finding. IMPRESSION: Thickening of the wall of the transverse and descending colon concerning for colitis. Left nephrolithiasis. Punctate stone in the left mid ureter. No hydronephrosis. Chronic bladder outlet obstruction with diffuse thickening and trabeculation of the bladder wall, multiple bladder diverticula, and 6 mm bladder stone. Markedly enlarged prostate. Calcified atherosclerosis. Review Statement Review Statement: I have independently reviewed and interpreted the labs/EKGs/imaging that were ordered by the ER provider. I have reviewed all outside records that are available currently in our EMR including imaging/notes/labs from previous visits. Plan Plan: 1. Acute on Chronic Severe Symptomatic Hyponatremia - had syncopal episode at home, continued weakness present, started 3%@30mL/hr, bmp Q4H, osmolalities ordered 2. Hypokalemia - replacement ordered, repeat bmp at 1300 3. UTI - rocephin 1G Q24H, urine culture pending 4. Colitis - rocephin and flagyl, zofran prn for nausea, continue omeprazole 5. Hypertension - chronic, continue home medications DVT Prophylaxis: Ambulation Time Spent: Greater than 80 minutes spent with patient, 50% of the time spent with this patient was devoted to counseling and coordination of care. [facility]annin minutes spent discussing advance care planning. Smoking Cessation: 3-10 minutes spent discussing smoking cessation. Disposition: Admit to: Med/Surg Observation DNI, CPR only Discussed Plan of Care with Dr. Guillermina Yap. Medications Medication Orders: Medications Ordered Category Date Time Status Acetaminophen [Tylenol] Meds 01/01/24 07:21 Active 650 mg PO Q4H PRN Aspirin [Aspirin EC] Meds 01/01/24 07:30 Active 325 mg PO DAILYWM2 Atenolol [Tenormin] Meds 01/01/24 09:00 Active 50 mg PO DAILY Ceftriaxone/D5w 1 gm Premix [Rocephin 1 gm/50 ml D5w] Meds 01/01/24 09:00 Active 1 gm in 50 ml IV DAILY Dutasteride [Avodart] Meds 01/01/24 09:00 Active 0.5 mg PO DAILY Losartan Potassium [Cozaar] Meds 01/01/24 09:00 Active 50 mg PO DAILY Metronidazole/Sodium Chloride [Flagyl 500 mg/100 ml] Meds 01/01/24 13:00 Active 500 mg in 100 ml IV Q8HR Omeprazole [Prilosec] Meds 01/01/24 09:00 Active 20 mg PO QDAC2 Ondansetron HCl/Pf [Zofran 4 mg/2 ml] Meds 01/01/24 07:21 Active 4 mg IVP Q6H PRN Sodium Chloride 3% 500 ml Meds 01/01/24 07:30 Active IV 30 mls/hr Tamsulosin HCl [Flomax] Meds 01/01/24 09:00 Active 0.4 mg PO DAILY
[2024-01-01] MEDS: POTASSIUM CHLORIDE 20 MEQ/100 ML PREMIX 20 MEQ/100 ML BAG IV ONE (09:41)
[2024-01-01 13:10] LABS: BLOOD UREA NITROGEN 10.6 mg/dL (9-20); CALCIUM 8.73 mg/dL (8.4-10.2); CARBON DIOXIDE 19.4 mmol/L (22-30.0); CHLORIDE 97.3 mmol/L (98-107); CREATININE 0.69 mg/dL (0.60-1.10); GLUCOSE 124.3 mg/dL (74-106); POTASSIUM 3.72 mmol/L (3.5-5.1); SODIUM 123.6 mmol/L (134.5-145)
[2024-01-01] MEDS: FLAGYL 500 MG/100 ML 500 MG/100 ML BAG IV SCH (13:39)
[2024-01-01 17:23] LABS: BLOOD UREA NITROGEN 10.6 mg/dL (9-20); CALCIUM 8.66 mg/dL (8.4-10.2); CARBON DIOXIDE 17.5 mmol/L (22-30.0); CREATININE 0.6 mg/dL (0.60-1.10); GLUCOSE 133.9 mg/dL (74-106); POTASSIUM 3.56 mmol/L (3.5-5.1); SODIUM 125.4 mmol/L (134.5-145)
[2024-01-01] MEDS: VENTOLIN HFA IH PRN (21:12)
[2024-01-01 22:17] LABS: BLOOD UREA NITROGEN 11.2 mg/dL (9-20); CALCIUM 8.27 mg/dL (8.4-10.2); CARBON DIOXIDE 20.5 mmol/L (22-30.0); CHLORIDE 100.8 mmol/L (98-107); CREATININE 0.66 mg/dL (0.60-1.10); GLUCOSE 106.9 mg/dL (74-106); POTASSIUM 3.61 mmol/L (3.5-5.1)
[2024-01-02 05:20] LABS: BASOPHILS # (AUTO) 0.1 K/uL (0-0.2); BASOPHILS % (AUTO) 0.9 % (0.0-3.0); EOSINOPHILS # (AUTO) 0.2 K/ul (0.0-0.7); EOSINOPHILS % (AUTO) 4.3 % (0.0-7.0); HEMATOCRIT 32.7 % (42.0-52.0); HEMOGLOBIN 11.7 g/dl (14.0-18.0); IMMATURE GRANULOCYTE % (AUTO) 0.6 % (0.0-5.0); LYMPHOCYTES # (AUTO) 1.4 K/uL (0.60-3.4); LYMPHOCYTES % (AUTO) 25.7 (10.0-50.0); MEAN CORPUSCULAR HEMOGLOBIN 33.6 pg (27.0-31.0); MEAN CORPUSCULAR HGB CONC 35.8 (31.8-35.4); MONOCYTES # (AUTO) 0.7 K/uL (0.4-2.0); MONOCYTES % (AUTO) 13.4 (0-10); NEUTROPHILS % (AUTO) 55.1 % (42.2-75.2); PLATELET COUNT 120 10^3/uL (140-440); RDW COEFFICIENT OF VARIATION 12.5 % (11.6-14.8); RED BLOOD COUNT 3.48 10^6/ul (4.70-6.10); WHITE BLOOD COUNT 5.38 K/ul (4.2-10.2)
[2024-01-02 05:22] LABS: ALBUMIN 3.3 g/dL (3.5-5.0); ALKALINE PHOSPHATASE 83.7 U/L (56-119); ASPARTATE AMINO TRANSFERASE 29.6 U/L (17-59); BILIRUBIN,TOTAL 0.68 mg/dL (0.2-1.3); BLOOD UREA NITROGEN 7.9 mg/dL (9-20); CALCIUM 8.57 mg/dL (8.4-10.2); CARBON DIOXIDE 21.1 mmol/L (22-30.0); CREATININE 0.66 mg/dL (0.60-1.10); GLUCOSE 90.6 mg/dL (74-106); POTASSIUM 3.41 mmol/L (3.5-5.1); TOTAL PROTEIN 6.12 g/dL (6.3-8.2)
[2024-01-02] MEDS: K-DUR PO ONE (10:02)
[2024-01-02 11:09] LABS: BLOOD UREA NITROGEN 8.1 mg/dL (9-20); CALCIUM 8.4 mg/dL (8.4-10.2); CARBON DIOXIDE 19.8 mmol/L (22-30.0); CREATININE 0.57 mg/dL (0.60-1.10); GLUCOSE 91.2 mg/dL (74-106); POTASSIUM 3.49 mmol/L (3.5-5.1); SODIUM 124.9 mmol/L (134.5-145)
--- NOTE | 2024-01-02 11:32 | PCM.PROG ---
Date/Time Seen Date Seen by Provider: 01/02/24 Time Seen by Provider: 09:00 Provider Provider[facility] Chief Complaint Chief Complaint: UTI, ACUTE COLITIS, SYNCOPE, HYPONATREONIA Subjective Subjective: Reports feeling better today. Requesting to go home. BP soft last night, mildly low this am, held BP meds Objective Appearance: Positive No Apparent Distress and Alert and Oriented x3 Chest/Lungs: Positive Symmetrical With Equal Breath Sounds, Clear to Auscultation Bilaterally and Good Air Movement all 4 Lung [place] Heart: Positive RRR and Pulses Normal GI/: Positive Soft, Nontender, Bowel Sounds Normal, No Distention and No Organomegaly Musculoskeletal: Positive Not Examined Neurological: Positive Sensation Intact, Motor intact, Alert, Oriented and Muscle Strength 5/5 in Upper and Lower Extremities Bilaterally Vital Signs Vital Signs: Vital Signs: Last 24 Hours 01/01/24 12:00 01/01/24 12:56 01/01/24 13:00 Temperature Temperature Source Pulse Rate Pulse Rate [Apical] Respiratory Rate Blood Pressure Blood Pressure Mean Blood Pressure Location Blood Pressure Position O2 Sat by Pulse Oximetry Oxygen Delivery Method Room Air Room Air Height Weight Telemetry Type Remote Telemetry Telemetry Monitoring Continues Telemetry Heart Rate 58 L EKG MN Interval 0.20 EKG QRS Interval 0.06 Telemetry Strip Reading SB with 1 avb 01/01/24 14:00 01/01/24 14:00 01/01/24 14:39 Temperature 98.7 F Temperature Source Temporal Artery Scan Pulse Rate 57 L Pulse Rate [Apical] Respiratory Rate 20 Blood Pressure 125/65 Blood Pressure Mean 85 Blood Pressure Location Left Arm Blood Pressure Position Sitting O2 Sat by Pulse Oximetry 99 Oxygen Delivery Method Room Air Room Air Room Air Height Weight Telemetry Type Telemetry Monitoring Telemetry Heart Rate EKG MN Interval EKG QRS Interval Telemetry Strip [place] 01/01/24 16:00 01/01/24 16:50 01/01/24 17:36 Temperature Temperature Source Pulse Rate Pulse Rate [Apical] Respiratory Rate Blood Pressure Blood Pressure Mean Blood Pressure Location Blood Pressure Position O2 Sat by Pulse Oximetry Oxygen Delivery Method Room Air Room Air Room Air Height Weight Telemetry Type Telemetry Monitoring Telemetry Heart Rate EKG MN Interval EKG QRS Interval Telemetry Strip [place] 01/01/24 17:43 01/01/24 19:00 01/01/24 19:00 Temperature 97.5 F L Temperature Source Oral Pulse Rate 51 L Pulse Rate [Apical] Respiratory Rate 24 H Blood Pressure 137/71 Blood Pressure Mean 93 Blood Pressure Location Left Arm Blood Pressure Position Sitting O2 Sat by Pulse Oximetry 96 Oxygen Delivery Method Room Air Room Air Height Weight Telemetry Type Remote Telemetry Telemetry Monitoring Continues Telemetry Heart Rate 55 L EKG MN Interval 0.23 H EKG QRS Interval 0.06 Telemetry Strip Reading SINUS JEAN PAUL W/ 1ST AVB 01/01/24 20:00 01/01/24 20:00 01/01/24 20:27 Temperature 98.4 F Temperature Source Temporal Artery Scan Pulse Rate 62 Pulse Rate [Apical] Respiratory Rate 18 19 Blood Pressure 88/65 L Blood Pressure Mean 72 Blood Pressure Location Left Arm Blood Pressure Position Supine O2 Sat by Pulse Oximetry 100 Oxygen Delivery Method Room Air Room Air Room Air Height Weight Telemetry Type Telemetry Monitoring Telemetry Heart Rate EKG MN Interval EKG QRS Interval Telemetry Strip [place] 01/01/24 20:32 01/01/24 21:00 01/01/24 22:00 Temperature Temperature Source Pulse Rate Pulse Rate [Apical] Respiratory Rate Blood Pressure Blood Pressure Mean Blood Pressure Location Blood Pressure Position O2 Sat by Pulse Oximetry Oxygen Delivery Method Room Air Room Air Height 5 ft 6 in Weight 120 lb Telemetry Type Telemetry Monitoring Telemetry Heart Rate EKG MN Interval EKG QRS Interval Telemetry Strip [place] 01/01/24 23:00 01/02/24 00:00 01/02/24 01:00 Temperature Temperature Source Pulse Rate Pulse Rate [Apical] Respiratory Rate Blood Pressure Blood Pressure Mean Blood Pressure Location Blood Pressure Position O2 Sat by Pulse Oximetry Oxygen Delivery Method Room Air Room Air Height Weight Telemetry Type Remote Telemetry Telemetry Monitoring Continues Telemetry Heart Rate 59 L EKG MN Interval 0.21 H EKG QRS Interval 0.06 Telemetry Strip Reading SINUS JEAN PAUL W/ 1ST AVB 01/02/24 01:00 01/02/24 02:00 01/02/24 02:00 Temperature Temperature Source Pulse Rate 57 L Pulse Rate [Apical] Respiratory Rate 18 Blood Pressure Blood Pressure Mean Blood Pressure Location Blood Pressure Position O2 Sat by Pulse Oximetry Oxygen Delivery Method Room Air Room Air Room Air Height Weight Telemetry Type Telemetry Monitoring Telemetry Heart Rate EKG MN Interval EKG QRS Interval Telemetry Strip [place] 01/02/24 03:00 01/02/24 04:00 01/02/24 05:00 Temperature Temperature Source Pulse Rate Pulse Rate [Apical] Respiratory Rate Blood Pressure Blood Pressure Mean Blood Pressure Location Blood Pressure Position O2 Sat by Pulse Oximetry Oxygen Delivery Method Room Air Room Air Room Air Height Weight Telemetry Type Telemetry Monitoring Telemetry Heart Rate EKG MN Interval EKG QRS Interval Telemetry Strip [place] 01/02/24 05:37 01/02/24 06:00 01/02/24 07:00 Temperature 98.2 F Temperature Source Temporal Artery Scan Pulse Rate 56 L Pulse Rate [Apical] Respiratory Rate 19 Blood Pressure 128/76 Blood Pressure Mean 93 Blood Pressure Location Left Arm Blood Pressure Position Supine O2 Sat by Pulse Oximetry 99 Oxygen Delivery Method Room Air Room Air Room Air Height Weight Telemetry Type Telemetry Monitoring Telemetry Heart Rate EKG MN Interval EKG QRS Interval Telemetry Strip Reading 01/02/24 07:00 01/02/24 08:00 01/02/24 08:00 Temperature Temperature Source Pulse Rate Pulse Rate [Apical] 55 L Respiratory Rate 18 Blood Pressure Blood Pressure Mean Blood Pressure Location Blood Pressure Position O2 Sat by Pulse Oximetry Oxygen Delivery Method Room Air Room Air Height Weight Telemetry Type Remote Telemetry Telemetry Monitoring Continues Telemetry Heart Rate 57 L EKG MN Interval 0.16 EKG QRS Interval 0.06 Telemetry Strip Reading Sinus jean paul with BBB 01/02/24 09:00 01/02/24 10:00 01/02/24 10:00 Temperature 97.7 F Temperature Source Temporal Artery Scan Pulse Rate 56 L Pulse Rate [Apical] Respiratory Rate 16 Blood Pressure 122/67 Blood Pressure Mean 85 Blood Pressure Location Left Arm Blood Pressure Position Supine O2 Sat by Pulse Oximetry 99 Oxygen Delivery Method Room Air Room Air Room Air Height Weight Telemetry Type Telemetry Monitoring Telemetry Heart Rate EKG MN Interval EKG QRS Interval Telemetry Strip [place] 01/02/24 11:00 Temperature Temperature Source Pulse Rate Pulse Rate [Apical] Respiratory Rate Blood Pressure Blood Pressure Mean Blood Pressure Location Blood Pressure Position O2 Sat by Pulse Oximetry Oxygen Delivery Method Room Air Height Weight Telemetry Type Telemetry Monitoring Telemetry Heart Rate EKG MN Interval EKG QRS Interval Telemetry Strip Reading Lab Results Lab Results: Lab Results: Last 24 Hours 01/02/24 01/02/24 01/01/24 10:53 05:05 22:00 WBC 5.38 RBC 3.48 L Hgb 11.7 L Hct 32.7 L MCV 94.0 MCH 33.6 H MCHC 35.8 H RDW Coeff of Yuki 12.5 Plt Count 120 L Immature Gran % (Auto) 0.6 Neut % (Auto) 55.1 Lymph % (Auto) 25.7 [place] % (Auto) 13.4 H Eos % (Auto) 4.3 Baso % (Auto) 0.9 Neut # (Auto) 3.0 Lymph # (Auto) 1.4 [place] # (Auto) 0.7 Eos # (Auto) 0.2 Baso # (Auto) 0.1 Immature Gran # (Auto) 0.0 Sodium 124.9 L 126.0 L 124.0 L Potassium 3.49 L 3.41 L 3.61 Chloride 99.0 101.0 100.8 Carbon Dioxide 19.8 L 21.1 L 20.5 L Anion Gap 9.59 7.31 6.31 BUN 8.1 L 7.9 L 11.2 Creatinine 0.57 L 0.66 0.66 Estimated GFR (MDRD) 136.00 115.00 115.00 BUN/Creatinine Ratio 14.21 11.96 16.96 Glucose 91.2 90.6 106.9 H Calcium 8.40 8.57 8.27 L Total Bilirubin 0.68 AST 29.6 ALT 14.0 Alkaline Phosphatase 83.7 Total Protein 6.12 L Albumin 3.30 L Globulin 2.82 Albumin/Globulin Ratio 1.17 01/01/24 01/01/24 17:05 12:53 WBC RBC Hgb Hct MCV MCH MCHC RDW Coeff of Yuki Plt Count Immature Gran % (Auto) Neut % (Auto) Lymph % (Auto) [place] % (Auto) Eos % (Auto) Baso % (Auto) Neut # (Auto) Lymph # (Auto) [place] # (Auto) Eos # (Auto) Baso # (Auto) Immature Gran # (Auto) Sodium 125.4 L 123.6 L Potassium 3.56 3.72 Chloride 101.0 97.3 L Carbon Dioxide 17.5 L 19.4 L Anion Gap 10.46 10.62 BUN 10.6 10.6 Creatinine 0.60 0.69 Estimated GFR (MDRD) 128.00 109.00 BUN/Creatinine Ratio 17.66 15.36 Glucose 133.9 H 124.3 H Calcium 8.66 8.73 Total Bilirubin AST ALT Alkaline Phosphatase Total Protein Albumin Globulin Albumin/Globulin Ratio Additional Comments Additional Comments: I have independently reviewed and interpreted the labs/EKGs/imaging ordered during this hospital stay. I have reviewed outside records that are available in our EMR that pertain to medical stay including imaging/notes/labs from previous visits. Active Medications Active Medications: Medications Generic Name Dose Route Start Last Admin Trade Name Freq PRN Reason Stop Dose Admin Acetaminophen 650 mg 01/01/24 07:21 Acetaminophen 325 Mg Tablet PO Q4H PRN Mild Pain Albuterol Sulfate 2 puff 01/01/24 19:19 01/01/24 21:12 Albuterol Sulfate 8 Gm Inhaler IH 2 puff Q4H PRN Administration SHORTNESS OF AIR Aspirin 325 mg 01/01/24 07:30 01/02/24 08:41 Aspirin 325 Mg Tablet. PO 325 mg DAILYWM2 ALIX Administration Atenolol 50 mg 01/01/24 09:00 01/02/24 09:38 Atenolol 50 Mg Tablet PO Not Given DAILY ALIX Dutasteride 0.5 mg 01/01/24 09:00 01/02/24 08:41 Dutasteride 0.5 Mg Capsule PO 0.5 mg DAILY ALIX Administration CEFTRIAXONE/D5W 1 GM PREMIX 1 gm in 50 mls @ 100 mls/hr 01/01/24 09:00 01/02/24 08:42 Rocephin 1 Gm/50 Ml D5w IV 01/04/24 08:59 100 mls/hr DAILY ALIX Administration Metronidazole 500 mg in 100 mls @ 100 mls/hr 01/01/24 13:00 01/02/24 05:02 Flagyl 500 Mg/100 Ml IV 01/04/24 12:59 100 mls/hr Q8HR ALIX Administration Sodium Chloride 500 mls @ 30 mls/hr 01/01/24 07:30 01/02/24 02:12 Sodium Chloride 3% IV 20 mls/hr .[id number] ALIX Administration Losartan Potassium 50 mg 01/01/24 09:00 01/02/24 09:38 Losartan Potassium 25 Mg Tablet PO Not Given DAILY ALIX Omeprazole 20 mg 01/01/24 09:00 01/02/24 05:03 Omeprazole 20 Mg Capsule. PO 20 mg QDAC2 ALIX Administration Ondansetron HCl 4 mg 01/01/24 07:21 Ondansetron Hcl/Pf 4 Mg/2 Ml Sdv IVP Q6H PRN Nausea / Vomiting Sodium Chloride 1 gm 01/02/24 13:00 Sodium Chloride 1 Gm Tablet PO QID ALIX Tamsulosin HCl 0.4 mg 01/01/24 09:00 01/02/24 08:42 Tamsulosin Hcl 0.4 Mg Cap.Er.24h PO 0.4 mg DAILY ALIX Administration Plan Plan: 1. Acute on Chronic Severe Symptomatic Hyponatremia - Improving, was improved to 126 and regressed to 124, added salt tabs, continue 3%@30mL/hr, bmp Q4H, osmolalities pending 2. Hypokalemia - Replaced, monitor 3. UTI - Ruled out, urine culture showing mixed growth, likely contaminant, no s/sx 4. Colitis - Improving, no loose stools, continue rocephin and flagyl, zofran prn for nausea, continue omeprazole 5. Hypertension - chronic, soft this am, held home medications DVT Prophylaxis: Ambulation Dispo: Will admit to inpatient due to failure of current regimen to improve sodium to chronic levels of 128-130s Review Statement Review Statement: I have personally discussed and reviewed the patient's visit/currently labs/imaging/decision making with Dr. Yap, my supervising attending. Greater that 50 minutes spent with patient, 50% of the time spent with this patient was devoted to counseling and coordination of care. Additional Additional Information: 1420: Notified by current RN that rate of 3% was at 20mL/hr. Unsure length of time fluids have been running at this rate. Likely explains why patient's sodium is not increasing at rate as expected. RN adjusted rate back to ordered 30mL/hr. Repeat BMP scheduled for 1500. Will determine further plan following.
[2024-01-02] MEDS: SODIUM CHLORIDE PO SCH (13:48)
[2024-01-02 15:25] LABS: BLOOD UREA NITROGEN 7.7 mg/dL (9-20); CALCIUM 8.18 mg/dL (8.4-10.2); CARBON DIOXIDE 17.8 mmol/L (22-30.0); CHLORIDE 101.1 mmol/L (98-107); CREATININE 0.53 mg/dL (0.60-1.10); GLUCOSE 92.9 mg/dL (74-106); POTASSIUM 3.66 mmol/L (3.5-5.1); SODIUM 124.2 mmol/L (134.5-145)
[2024-01-02 21:03] LABS: CALCIUM 8.2 mg/dL (8.4-10.2); CREATININE 0.6 mg/dL (0.60-1.10); POTASSIUM 3.5 mmol/L (3.5-5.1)
[2024-01-03 05:08] VITALS: BP 147/76; TEMP 98.1
[2024-01-03 05:15] LABS: BASOPHILS % (AUTO) 0.8 % (0.0-3.0); EOSINOPHILS # (AUTO) 0.2 K/ul (0.0-0.7); EOSINOPHILS % (AUTO) 4.3 % (0.0-7.0); HEMATOCRIT 32.4 % (42.0-52.0); HEMOGLOBIN 11.6 g/dl (14.0-18.0); IMMATURE GRANULOCYTE % (AUTO) 0.4 % (0.0-5.0); LYMPHOCYTES # (AUTO) 1.3 K/uL (0.60-3.4); LYMPHOCYTES % (AUTO) 27.3 (10.0-50.0); MEAN CORPUSCULAR HEMOGLOBIN 33.3 pg (27.0-31.0); MEAN CORPUSCULAR HGB CONC 35.8 (31.8-35.4); MEAN CORPUSCULAR VOLUME 93.1 fl (80.0-94.0); MONOCYTES # (AUTO) 0.5 K/uL (0.4-2.0); MONOCYTES % (AUTO) 10.5 (0-10); NEUTROPHILS # (AUTO) 2.8 K/ul (2.0-6.9); NEUTROPHILS % (AUTO) 56.7 % (42.2-75.2); PLATELET COUNT 126 10^3/uL (140-440); RDW COEFFICIENT OF VARIATION 12.6 % (11.6-14.8); RED BLOOD COUNT 3.48 10^6/ul (4.70-6.10); WHITE BLOOD COUNT 4.88 K/ul (4.2-10.2)
[2024-01-03 05:27] LABS: ALANINE AMINOTRANSFERASE 13.9 U/L (0-50); ALBUMIN 3.12 g/dL (3.5-5.0); ALKALINE PHOSPHATASE 81.2 U/L (56-119); ASPARTATE AMINO TRANSFERASE 27.8 U/L (17-59); BILIRUBIN,TOTAL 0.78 mg/dL (0.2-1.3); BLOOD UREA NITROGEN 5.5 mg/dL (9-20); CALCIUM 8.43 mg/dL (8.4-10.2); CARBON DIOXIDE 19.1 mmol/L (22-30.0); CREATININE 0.56 mg/dL (0.60-1.10); GLUCOSE 86.5 mg/dL (74-106); POTASSIUM 3.44 mmol/L (3.5-5.1); SODIUM 128.4 mmol/L (134.5-145); TOTAL PROTEIN 5.9 g/dL (6.3-8.2)
--- NOTE | 2024-01-03 08:32 | DCSUM ---
Admission Date Admission Date: 01/01/24 Discharge Date Discharge Date: 01/03/24 Admission Diagnosis Admission Diagnosis: 1. Acute on Chronic Severe Symptomatic Hyponatremia 2. Hypokalemia 3. UTI 4. Colitis 5. Hypertension Discharge Diagnosis Discharge Diagnosis: 1. Acute on Chronic Severe Symptomatic Hyponatremia - Resolved, at chronic level 2. Hypokalemia - Replaced, stable 3. UTI - Ruled out 4. Colitis - Improving 5. Hypertension - Chronic, stable Hospital Provider Hospital Provider: DURGA JUAN, [facility] [place] Primary Care Physician: BALTA ASENCIO MD Summary of History and Physical Summary of History and Physical: 83 yo male presented to the ER following a syncopal episode. States he got up to use the bathroom and woke up between the wall and the sink. EMS called and brought patient to ER. Denies any chest pain, sob, palpitations, fever. Has had loose stools for the past couple days. Denies blood or bile present. Ct head negative. Ct abd pelvis showed colitis. Also found to be hyponatremic at 122 and hypokalemic at 2.9. UTI present on UA. Denies any vomiting at home. Does report mild abdominal pain in lower quadrants. Admitted to med/surg observation. Hospital Course Subjective: During course, patient did not experience any further loose stools. Colitis was treated with rocephin and flagyl. He was given 3% saline for treatment of hyponatremia. Chronically sodium runs between 128-130. Sodium slowly improved, regressed due to slowing of the rate of fluids due to discomfort. Back up to 128 this am. Requesting discharge. Osmolalities pending. Hypokalemia noted on admission. Replaced and remaining stable. UTI concern on UA. Urine culture showed mixed growth and likely contaminant. No s/sx. BP was lower yesterday and HR was running in 50s. Held atenolol and held chlorthalidone combo on admission due to hyponatremia. Likely contributing in addition to colitis. Stopped this medication due to patient HR running in lower 50s. No further changes made to home medication regimen. Appearance: Pleasant, No Apparent Distress and Alert HEENT: MMM, Supple and No JVD CVS: No Murmur and No Rubs Abdomen: Soft and Non-Tender Respiratory: No Dyspnea Extremities: No Edema Vital Signs: Most Recent Vital Signs Temperature 98.1 F 01/03/24 05:06 Temperature Source Temporal Artery Scan 01/03/24 05:06 Temperature Source Infrared 01/01/24 03:09 Pulse Rate 51 L 01/03/24 05:06 Respiratory Rate 18 01/03/24 05:06 Blood Pressure 147/76 H 01/03/24 05:06 Blood Pressure Mean 99 01/03/24 05:06 Blood Pressure Right Arm 144/78 01/01/24 05:50 Blood Pressure Location Left Arm 01/03/24 05:06 Blood Pressure Position Supine 01/03/24 05:06 O2 Sat by Pulse Oximetry 97 01/03/24 05:06 Oxygen Delivery Method Room Air 01/03/24 07:00 Height 5 ft 6 in 01/01/24 20:32 Weight 120 lb 01/01/24 20:32 Telemetry Type Remote Telemetry 01/03/24 07:00 Telemetry Monitoring Continues 01/03/24 07:00 Telemetry Heart Rate 55 L 01/03/24 07:00 Telemetry SPO2 99 01/01/24 06:32 EKG NH Interval 0.20 01/03/24 07:00 EKG QRS Interval 0.12 H 01/03/24 07:00 Telemetry Strip Reading SB WITH BBB 01/03/24 07:00 Imaging: EXAM: CT OF THE ABDOMEN AND PELVIS WITHOUT CONTRAST. FINDINGS: Evaluation of solid organs and blood vessels is suboptimal without the benefit o f contrast. Imaged lower thorax: Calcified granulomas at the right lung base. Post sternotomy. Liver: Scattered calcified granulomas in the liver. Gallbladder/Bile Ducts: No biliary dilation. Gallbladder is unremarkable. Spleen: Multiple calcified granulomas in the spleen. Pancreas: Moderate atrophy. Adrenals: Unremarkable. Kidneys/Ureters: Punctate stone in the left mid ureter. No hydronephrosis. Stones at the left lower pole measuring up to 3 mm. Bowel/mesentery/peritoneum: Thickening of the wall of the distal transverse and descending colon. Normal appendix. No free air or ascites. Retroperitoneum/vessels: No aortic aneurysm. Multifocal atherosclerotic calcifications. Pelvis: Thickening and trabeculation of the bladder wall with multiple small diverticula. Dependent stone in the bladder measures 6 mm. Markedly enlarged prostate. Small fat containing left inguinal hernia. Bones/body wall: Degenerative change of the spine and hips. No acute osseous finding. IMPRESSION: Thickening of the wall of the transverse and descending colon concerning for colitis. Left nephrolithiasis. Punctate stone in the left mid ureter. No hydronephrosis. Chronic bladder outlet obstruction with diffuse thickening and trabeculation of the bladder wall, multiple bladder diverticula, and 6 mm bladder stone. Markedly enlarged prostate. Calcified atherosclerosis. EXAM: CT HEAD WITHOUT CONTRAST. FINDINGS: No evidence of acute infarction, hemorrhage, or mass. Moderate brain volume loss. Mild chronic microvascular changes of the white matter. Atherosclerotic calcification of the carotid siphons. No brain herniation. Patent basilar cisterns. Partially empty sella. Ventricles are proportional to brain volume. No acute osseous abnormality. Fracture repair hardware along the right orbital rim. Bilateral lens replacements of the globes. IMPRESSION: No acute intracranial abnormality. Chronic findings as above. Lab Results Last 24 Hours: 01/03/24 01/02/24 01/02/24 05:09 20:40 15:08 WBC 4.88 RBC 3.48 L Hgb 11.6 L Hct 32.4 L MCV 93.1 MCH 33.3 H MCHC 35.8 H RDW Coeff of Yuki 12.6 Plt Count 126 L Immature Gran % (Auto) 0.4 Neut % (Auto) 56.7 Lymph % (Auto) 27.3 [place] % (Auto) 10.5 H Eos % (Auto) 4.3 Baso % (Auto) 0.8 Neut # (Auto) 2.8 Lymph # (Auto) 1.3 [place] # (Auto) 0.5 Eos # (Auto) 0.2 Baso # (Auto) 0.0 Immature Gran # (Auto) 0.0 Sodium 128.4 L 126.0 L 124.2 L Potassium 3.44 L 3.50 3.66 Chloride 104.0 104.0 101.1 Carbon Dioxide 19.1 L 19.0 L 17.8 L Anion Gap 8.74 6.50 8.96 BUN 5.5 L 7.0 L 7.7 L Creatinine 0.56 L 0.60 0.53 L Estimated GFR (MDRD) 139.00 128.00 148.00 BUN/Creatinine Ratio 9.82 11.66 14.52 Glucose 86.5 86.0 92.9 Calcium 8.43 8.20 L 8.18 L Total Bilirubin 0.78 AST 27.8 ALT 13.9 Alkaline Phosphatase 81.2 Total Protein 5.90 L Albumin 3.12 L Globulin 2.78 Albumin/Globulin Ratio 1.12 01/02/24 10:53 WBC RBC Hgb Hct MCV MCH MCHC RDW Coeff of Yuki Plt Count Immature Gran % (Auto) Neut % (Auto) Lymph % (Auto) [place] % (Auto) Eos % (Auto) Baso % (Auto) Neut # (Auto) Lymph # (Auto) [place] # (Auto) Eos # (Auto) Baso # (Auto) Immature Gran # (Auto) Sodium 124.9 L Potassium 3.49 L Chloride 99.0 Carbon Dioxide 19.8 L Anion Gap 9.59 BUN 8.1 L Creatinine 0.57 L Estimated GFR (MDRD) 136.00 BUN/Creatinine Ratio 14.21 Glucose 91.2 Calcium 8.40 Total Bilirubin AST ALT Alkaline Phosphatase Total Protein Albumin Globulin Albumin/Globulin Ratio Discharge Instructions Discharge Planning: Discharge Planning > 40 minutes If patient is discharged with left ventricular systolic dysfunction:NA Discharged with a beta gerard? [] If no, why not? [] Discharged with an femi/arb? [] If no, why not? [] DIET: Regular ACTIVITY: As tolerated FOLLOW-UP WITH PCP NEXT WEEK MEDICATIONS: Metronidazole 500 mg twice a day for 4 days (antifungal for colitis) Keflex 500 mg twice a day for 4 days (antibiotic for colitis) Sodium chloride take 4 times a day (for low sodium) STOP taking atenolol/chlorthalidone Discharge Medications: Medications at Discharge (Home Meds & RX) aspirin 325 mg tablet 325 mg PO QDAY 11/04/22 losartan 50 mg tablet See Rx Instructions .Route .COMPLEX #90 tabs 06/06/23 budesonide 160 mcg-glycopyr 9 mcg-formot 4.8 mcg/actuation HFA inhaler (Breztri Aerosphere) 2 inh inhalation QAM #10.7 grams 07/11/23 atenolol 50 mg-chlorthalidone 25 mg tablet 1 tab PO DAILY #90 tabs 10/04/23 omeprazole 20 mg capsule,delayed release 20 mg PO DAILY #90 caps 10/04/23 dutasteride 0.5 mg capsule (Avodart) 0.5 mg PO QDAY #30 caps 10/12/23 tamsulosin 0.4 mg capsule See Rx Instructions .Route .COMPLEX #90 caps 12/19/23 Discharge Plan Discharge Discharge Orders: Discharge Patient (ONCE); Ordered 01/03/24 Ordered By: BOUBACAR DAVIS Activity Restrictions/Additional Instructions: DIAGNOSIS: HYPONATREMIA, HYPOKALEMIA, COLITIS DIET: Regular ACTIVITY: As tolerated FOLLOW-UP WITH PCP NEXT WEEK MEDICATIONS: Metronidazole 500 mg twice a day for 4 days (antifungal for colitis) Keflex 500 mg twice a day for 4 days (antibiotic for colitis) Sodium chloride take 4 times a day (for low sodium) STOP taking atenolol/chlorthalidone Instructions: Hyponatremia (GEN), Hypokalemia (GEN), Colitis (ED) Patient Disposition: HOME SELF-CARE Prescriptions: New sodium chloride 1,000 mg Tablet,Soluble 1,000 mg PO QID Qty: 120 0RF metronidazole 500 mg tablet 500 mg PO BID Qty: 8 0RF cephalexin 500 mg capsule 500 mg PO BID Qty: 8 0RF Continued losartan 50 mg tablet See Rx Instructions .ROUTE .COMPLEX Qty: 90 1RF Dose Instruction: TAKE 1 TABLET BY MOUTH 1 TIME Patient Comments: PT STATES TAKES LOSARATN 50MG DAILY Rx Instructions: TAKE 1 TABLET BY MOUTH 1 TIME omeprazole 20 mg capsule,delayed release(DR/EC) 20 mg PO DAILY Qty: 90 1RF dutasteride [Avodart] 0.5 mg capsule 0.5 mg PO QDAY Qty: 30 4RF tamsulosin 0.4 mg capsule See Rx Instructions .ROUTE .COMPLEX Qty: 90 1RF Dose Instruction: TAKE 1 CAPSULE BY MOUTH EVERY DAY Rx Instructions: TAKE 1 CAPSULE BY MOUTH EVERY DAY aspirin 325 mg tablet 325 mg PO QDAY Breztri Aerosphere 160-9-4.8 mcg/actuation HFA aerosol inhaler 2 inh inhalation QAM Qty: 10.7 2RF Discontinued atenolol-chlorthalidone 50-25 mg tablet 1 tab PO DAILY Qty: 90 1RF Did you review [place] [employer] for ALL controlled substances?: No Discussed opioids are addictive and Narcan is available by prescription or from pharmacy.: No Condition: Stable Referrals: BALTA ASENCIO MD [Primary Care Provider] - 01/10/24 2:40 pm
[2024-01-03] MEDS: K-DUR PO ONE (08:48)
[2024-01-03 08:59] VITALS: PULSE 70; RESP 17
[2024-01-04 09:18] LABS: CREATININE, URINE 43.8 mg/dL (Not Estab.)
[2024-01-04 14:13] LABS: OSMOLALITY,URINE 451 mOsmol/kg (.)
[2024-01-04 21:08] LABS: SERUM OSMOLALITY 254 mOsmol/kg (280-301)
== END 2024-01-03 09:10 | disposition home or self-care (01) ==
LOC: ED 03:08 → MEDSURG B 05:23 → INTOOBSV 05:23 → MEDSURG B 05:46
PROVIDERS: ADMIT Hospitalist; ATTEND Nurse Practitioner Family
DX: R55 Syncope and collapse; J44.9 Chronic obstructive pulmonary disease, unspecified; R00.1 Bradycardia, unspecified; N20.0 Calculus of kidney; K59.00 Constipation, unspecified; Z20.822 Contact with and (suspected) exposure to COVID-19; K63.89 Other specified diseases of intestine; R10.30 Lower abdominal pain, unspecified; I10 Essential (primary) hypertension; N40.0 Benign prostatic hyperplasia without lower urinary tract symptoms; F17.210 Nicotine dependence, cigarettes, uncomplicated; N30.00 Acute cystitis without hematuria; E87.1 Hypo-osmolality and hyponatremia; N20.1 Calculus of ureter; Z87.440 Personal history of urinary (tract) infections; I45.10 Unspecified right bundle-branch block; Z51.81 Encounter for therapeutic drug level monitoring; K52.9 Noninfective gastroenteritis and colitis, unspecified; R53.1 Weakness; Z79.899 Other long term (current) drug therapy; R05.9 Cough, unspecified; E87.6 Hypokalemia